=== PATIENT | female | born 1990 | race Caucasian/White ===

== ENCOUNTER 2020-10-01 15:43 | Outpatient (CLI) | payer BC, SELFPAY ==
--- NOTE | ~2020-10-01 | US_ITS ---
EXAMINATION: US pelvic complete w TV DATE: 10/01/2020 16:36 INDICATION: Pelvic pain TECHNIQUE: Multiple transabdominal and endovaginal sonographic images of the pelvis were obtained. COMPARISON: CT abdomen and pelvis dated 03/19/2018 FINDINGS: The uterus measures 7.6 x 3.4 x 4.0 cm. The endometrial complex measures 3 mm in thickness. Minimal fluid measuring up to 2 mm in thickness within the endocervical canal. The left ovary is not visualiz ed. 4.8 x 3.8 x 3.1 cm mass at the right adnexa situated between the uterus and what appears to be sm aller 2.0 x 1.9 x 1.3 m right ovary which demonstrates a few subcentimeter anechoic follicles. The ce rvix was identified within both the ovary and the adjacent mass. It is unclear whether the mass arise s from either the ovary, uterus, bowel or represents an independent mass. There are some regions with in the mass demonstrating shadowing suggesting possible calcification such as in a uterine fibroid. N o evident correlate on the prior CT. There is normal vascular flow in the ovaries. Small amount of li shana physiologic free fluid in the cul-de-sac. IMPRESSION: 1. 4.8 cm right adnexal mass of indeterminate origin. If of uterine etiology could represent a pedunc ulated fibroid. If ovarian etiologies would be concerning for malignancy. Differential would also inc lude enlarged right peroneal lymph node more mass associated with the bowel. Recommend further evalua tion with pre and postcontrast MRI. Reviewed, dictated and finalized at location A. [employer] SPECIALIST IMPRESSION: 1. 4.8 cm right adnexal mass of indeterminate origin. If of uterine etiology co uld represent a pedunculated fibroid. If ovarian etiologies would be concerning for malignancy. Differential would also include enlarged right peroneal lymph node more mass associated with the bowel. Recommend further evaluation with pre and postcontrast MRI.
== END 2020-10-01 15:44 | disposition home or self-care (01) ==
PROVIDERS: PCP Family Medicine; Visit Provider Nurse Practitioner
DX: R10.2 Pelvic and perineal pain (principal)
CPT/HCPCS: 76830; 76856

== ENCOUNTER 2020-10-19 06:35 | Outpatient (CLI) | payer BC, SELFPAY ==
--- NOTE | ~2020-10-19 | MR_ITS ---
EXAMINATION: MR pelvis wo/w con DATE: 10/19/2020 08:23 INDICATION: Right ovarian cyst. Right pelvic pain. TECHNIQUE: Magnetic resonance imaging (MRI) of the pelvis was performed without and with 13 mL MultiH ance intravenous contrast. Sequences included coronal and axial T2-weighted FS FSE, axial T1-weighted FS FSE, axial LAVA, coronal FS FIESTA, coronal LAVA-flex, axial T2-weighted FSE, axial dual-echo T1- weighted FSPGR, axial FS FIESTA, axial DWI, and small [id number] sagittal, coronal, and axial T2-w eighted FSE. Postcontrast sequences included coronal LAVA-flex and a time course of axial LAVA. COMPARISON: Ultrasound 10/01/2020, CT abdomen and pelvis 03/19/2018 FINDINGS: There are no dilated loops of bowel. There are no pathologically enlarged lymph nodes. There is a sma ll volume of pelvic ascites, likely physiologic. There is a 5.0 cm pedunculated fibroid on the right. The endometrial complex is normal. The ovaries are normal. IMPRESSION: 1. 5.0 cm pedunculated uterine fibroid on the right correlating with the ultrasound abnormality. Reviewed, dictated and finalized at location A. BOX FOLDER IMPRESSION: 1. 5.0 cm pedunculated uterine fibroid on the right correlating with the ultras ound abnormality.
[2020-10-19 07:40] LABS: Estimated Glomerular Filt Rate > 60
== END 2020-10-19 06:36 | disposition home or self-care (01) ==
PROVIDERS: PCP Family Medicine; Visit Provider Obstetrics & Gynecology
DX: N83.201 Unspecified ovarian cyst, right side (principal); D25.9 Leiomyoma of uterus, unspecified
CPT/HCPCS: 72197; A9577

== ENCOUNTER 2020-11-19 15:23 | Outpatient (CLI) | payer BC, SELFPAY ==
--- NOTE | ~2020-11-19 | XR_ITS ---
XR abdomen/kub 1V 11/19/2020 16:01 Indication: Gross hematuria. Right upper quadrant pain Procedure: KUB Comparison: No prior studies for comparison. Findings: Bowel gas pattern is nonobstructive. No abnormal calcifications. No acute osseous abnormali ty. Impression: 1: No acute abdominal abnormality. Reviewed, dictated and finalized at location B. Impression: 1: No acute abdominal abnormality.
--- NOTE | ~2020-11-19 | CT_ITS ---
EXAMINATION: CT abdomen pelvis wo/w con DATE: 11/19/2020 16:31 INDICATION: Gross hematuria. TECHNIQUE: Computed tomography (CT) of the abdomen and pelvis was performed without and with intraven ous contrast using a total of 130 mL Omnipaque-350 intravenous contrast with a double-bolus technique for simultaneous opacification of the renal parenchyma and renal collecting system. Automated exposu re control and iterative reconstruction technique were employed. The dose-length product was 974.37 m Gy-cm. COMPARISON: CT abdomen and pelvis 03/19/2018 FINDINGS: The visualized portions of the lung bases demonstrate a 4 mm groundglass nodule in right middle lobe and a 4 mm nodule in right lower lobe, likely benign. No pleural effusion. No pleural effusion. The h eart size is normal. No pericardial effusion. The liver, gallbladder, spleen, pancreas, adrenal gland s, and kidneys are normal. There is no urolithiasis. The ureters are not well opacified distally, but are normal. The bladder is normal. There is a 4.5 cm pedunculated uterine fibroid. There are no path ologically enlarged lymph nodes. There is trace pelvic ascites. The bones are unremarkable. IMPRESSION: 1. Uterine fibroid. Reviewed, dictated and finalized at location A. IMPRESSION: 1. Uterine fibroid.
== END 2020-11-19 15:24 | disposition home or self-care (01) ==
PROVIDERS: PCP Family Medicine; Visit Provider Urology
DX: R31.0 Gross hematuria (principal); D25.9 Leiomyoma of uterus, unspecified
CPT/HCPCS: 74018; 74178; Q9967

== ENCOUNTER → 2020-12-21 02:11 | Outpatient (CLI) | payer BC, SELFPAY ==
[2020-12-21 19:24] LABS: SARS-CoV-2 RNA PCR Negative
== END ==
PROVIDERS: PCP Family Medicine; Visit Provider Obstetrics & Gynecology
DX: Z01.812 Encounter for preprocedural laboratory examination (principal); Z20.822 Contact with and (suspected) exposure to COVID-19
CPT/HCPCS: C9803; U0003; U0005

== ENCOUNTER 2020-12-24 01:02 | Day surgery (SDC) | payer BC, SELFPAY ==
[2020-12-20 10:09] VITALS: BMI 29.2
--- NOTE | 2020-12-22 09:40 | PM.IMHP ---
H&P: HPI History of Present Illness Date/Time: this is a 22-year-old 0 who is admitted for laparoscopic myomectomy secondary to a pedunculated fibroid. The patient saw the urologist was complains of discomfort cetera ultrasound showed a pedunculated fibroid. Her pain is severe and she has asked for definitive therapy. Risks and benefits were reviewed in full/01/07 09:40 Chief Complaint: painful uterine fibroids Review of Systems Review of Systems: All systems reviewed & are unremarkable except as noted in HPI and below [facility] Social History Social History Smoking status: Never smoker Alcohol intake: current Substance use: never Substance use type: does not use Gender identity (if verbalized by the patient): Female Spiritual care concerns: No Meds Home Medications and Allergies Home Medications Medication Instructions Recorded Confirmed Type mometasone [Asmanex HFA] 2 puff INHALATION BID PRN 07/23/19 12/20/20 History norethindrone-e.estradiol-iron 1 tablet PO HS 07/23/19 12/20/20 History cetirizine [Zyrtec] 10 mg PO DAILY 12/20/20 12/20/20 History Allergies Allergy/AdvReac Type Severity Reaction Status Date / Time No Known Allergies Allergy Verified 12/20/20 10:06 Exam Const: General: no acute distress Eyes: General: appearance normal, both eyes and all related structures Neck: Neck: supple and no JVD Thyroid: thyroid normal Resp: Effort & Inspection: normal respiratory effort Auscultation: clear to auscultation bilaterally Cardio: Rate: regular rate Rhythm: regular rhythm GI: Inspection: non-distended GI Palp: Yes Soft to palpation, No Tenderness to palpation present (GI) and No Guarding due to palpation present (GI) Auscultation: normal bowel sounds : External Female Exam: normal external appearance Speculum Exam - Vagina: normal appearance of the vagina Speculum Exam - Cervix: normal appearance of the cervix Bimanual exam- vagina & uterus: enlarged and Uterine tenderness Skin: General skin exam: no rashes or lesions noted Extrem: General: normal to inspection and no edema Psych: Mental Status: mental status grossly normal Affect: normal affect Assessment and Plan Additional Plan impression Koul pedunculated fibroid Plan: Laparoscopic myomectomy
[2020-12-24] VITALS (12 sets, daily range): BP systolic 105–132; BP diastolic 69–87; PULSE 58–81; RESP 11–22; TEMP 36.3–36.8; O2SAT 100
--- NOTE | 2020-12-24 06:08 | WPDHPUPDATE1 ---
History and Physical Update Update Date/Time: 12/24/20 06:08 History and Physical has been reviewed, including an updated exam of the patient. There are NO changes in the patient's condition. Risks, benefits, and alternatives have been discussed and questions answered. Patient agrees to proceed with procedure.
--- NOTE | 2020-12-24 07:51 | WPDANESEPPF ---
Anes - Initial Pre Proc Eval Procedure: Operation Date: 12/24/20 11:30 Proposed Procedures p Laparoscopy With Myomectomy - Freddie Pepper MD Date/Time: 12/24/20 07:51 Surgeon: Freddie Pepper MD Pre Op Diagnosis: pedunculated fibroid Patient Data Age: 30 Gender: F Height: 1.52 m Weight: 68 kg Allergies Allergy/AdvReac Type Severity Reaction Status Date / Time No Known Allergies Allergy Verified 12/20/20 10:06 Home Medications Medication Instructions Recorded Confirmed Type mometasone [Asmanex HFA] 2 puff INHALATION BID PRN 07/23/19 12/20/20 History norethindrone-e.estradiol-iron 1 tablet PO HS 07/23/19 12/20/20 History cetirizine [Zyrtec] 10 mg PO DAILY 12/20/20 12/20/20 History hydrocodone-acetaminophen 1 tablet PO Q4H PRN #30 tablet 12/24/20 Rx Patient hx anesthesia problems: none Family hx anesthesia problems: none PMFSH Past Medical History Medical History (Updated 12/24/20 @ 07:51 by Luis Raya DO) Fibroid IBS (irritable bowel syndrome) Social History Social History Smoking status: Never smoker Alcohol intake: current Alcohol use details: RARE Substance use: never Substance use type: does not use Living arrangements: with family Gender identity (if verbalized by the patient): Female Spiritual care concerns: No Anes - Eval Final PreProcedure Day of Procedure 12/24/20 07:51 Patient weight: overweight Heart: regular rate and rhythm Lungs: clear to auscultation and normal air movement Airway: Mallampati scale class II Neurological: alert and oriented Last oral intake: >/= 8 hours ASA classification: II Emergent: no Anesthetic plan: proceed Anesthesia type and monitoring: general ETT and standard monitoring Informed Consent: The patient's anesthetic plan and its attendant risks and benefits were discussed with the patient/family/POA. Questions were solicited and answers provided to the satisfaction of the patient/family/POA.
[2020-12-24] MEDS: LACTATED RINGERS 1,000 ML 30 ML IV CONT ×2 (10:12→13:34)
[2020-12-24] MEDS: ACETAMINOPHEN 500 MG TABLET 1000 MG PO (10:22)
[2020-12-24] MEDS: KETOROLAC 15 MG/ML VIAL (*BKC) IV PUSH (10:23)
--- NOTE | 2020-12-24 12:03 | P.OP_ITS ---
Procedure Note - Detailed Date of procedure: 12/24/20 Pre-op diagnosis: pedunculated fibroid Surgeon: Freddie Pepper MD Postop diagnosis: Pedunculated fibroid/endometriosis Procedure: Laparoscopic myomectomy/destruction of endometriosis Anesthesia: General tracheal EBL: 25cc Findings: A large pedunculated fibroid. Normal-appearing ovaries and tubes bilaterally. Multiple areas of powder burn endometriosis along the right left uterosacral ligament. Normal-appearing appendix. Normal-appearing gallbladder and liver edge Complications: None Description of procedure the patient was prepped and draped in the normal sterile fashion placed in the dorsal lithotomy position. Under excellent gene ral endotracheal anesthesia weighted speculum placed posterior fornix of vagina. Anterior lip of the cervix was grasped with a single-tooth tenaculum. The single-tooth was inserted to the cervix with the Scanlon's cannula and attached for uterine manipulation. The bladder was emptied of clear urine. The remaining instruments removed and the gloves were changed. Supraumbilical incision was made the Veress needle passed in the abdomen. The abdomen was filled with CO2 gas to 15 of mercury. The 5mm trocar advanced under direct visualization assuring no injury. The patient was placed in [facility] and a suprapubic incision made. 5mm trocar was advanced under direct visualization assuring injury. A large pedunculated fibroid was seen posteriorly as well as multiple areas of powder burn endometriosis remainder of the pelvis appeared clear and photo documentation undertaken. A left lower quadrant incision made and the 10mm trocar advanced under direct visualization. Using the LigaSure in the pedunculated portion the fibroid was clamped burned and cut. This was brought across until it was able to be removed. Was then placed in an Endo-Catch after destroying the endometriosis was 35 w per 2nd monopolar cautery. Irrigation undertaken to clear blood loss estimated 25cc all pedicles appeared dry. The left lower quadrant incision was mildly enlarged to allow for the large pedunculated fibroid to be removed. The fascia was closed with continuous running 0 Vicryl from end and. Irrigation undertaken the subcutaneous layers and the skin were closed with 4 Monocryl in all 3 sites after gas had been removed from the abdomen. The patient was awakened and went to recovery in satisfactory condition. All sponge, needle, instrument counts were correct. There were no immediate complications
[2020-12-24] MEDS: fentaNYL CITRATE INJ (*CRX) 100 MCG/2 ML VIAL 25 MCG IV PUSH ×4 (12:34→13:12)
[2020-12-24] MEDS: HYDROmorphone HCL INJ (*CRX) 1 MG/ML SYR 0.5 MG IV PUSH ×2 (13:35→13:50)
[2020-12-24] MEDS: ONDANSETRON INJ 4 MG/2 ML VIAL IV PUSH (14:29)
--- NOTE | 2020-12-24 15:10 | SUR.PHASEII ---
pt states she is no longer nauseous but is denying pain pill at this time
== END 2020-12-24 15:15 | disposition home or self-care (01) ==
PROVIDERS: PCP Family Medicine; Visit Provider Obstetrics & Gynecology
PROC: (CPT 49320; principal; 2020-12-24 11:30)
DX: D25.2 Subserosal leiomyoma of uterus (principal); N80.3 Endometriosis of pelvic peritoneum
CPT/HCPCS: 58545; 58662; 36415; 86850; 86900; 86901; 88305; A9270; J1100; J1170; J1885; J2250; J2405; J2704; J2710; J3010; J7030; J7120; Q9968

== ENCOUNTER 2022-05-24 20:27 | Observation (INO) | payer OTHER, SELFPAY ==
[2022-05-24 20:47] VITALS: BP 134/86; PULSE 102
[2022-05-24 21:08] VITALS: BMI 39.2
--- NOTE | 2022-05-24 21:09 | OBADM ---
This patient, Corrina Mendoza, admitted to the OB room OB Post 115 for observation. Patient/family oriented to hospital policies and general routines including ID bracelet, bed and alarms, visiting hours, pain management, procedures, bathroom and other care routines, personal items, smoking policy, room service/diet, and visiting hours. Patient/Family are encouraged to report perceived risks to care and to ask questions if they do not understand what they are told or what they should do.
[2022-05-24 21:10] LABS: Amorphous Sediment Urine Few; Bacteria Urine Trace /hpf; Squamous Epithelial Cell Urine Many /hpf (Few)
[2022-05-24 21:12] LABS: Appearance Urine Cloudy (Clear); Bilirubin Urine Negative (Negative); Blood Urine Trace-intact (Negative); Color Urine Light Yellow (Yellow); Glucose Urine UA Negative (Negative); Ketones Urine Negative (Negative); Leukocyte Esterase Ur 2+ LEU/UL (Negative); Nitrate Urine Negative (Negative); Protein Urine Negative (Negative); Urobilinogen Urine 0.2 mg/dL (<2.0)
[2022-05-24 21:13] LABS: Add Urine Microscopic? YES
[2022-05-24] MEDS: CEPHALEXIN 500 MG CAPSULE PO (23:18)
--- NOTE | 2022-05-25 04:38 | P.PNOB_ITS ---
OB - Triage/Final Diagnosis Visit Information Date of evaluation: 05/24/22 Reason for evaluation: threatened labor Comments/Additional reasons for admission: I have assessed the risk for this patient, Corrina Mendoza, and determined that she would benefit from observation care. Evaluation Laboratory results: Laboratory Tests 05/24/22 20:57 Urine Color Light yellow Urine Appearance Cloudy H Urine pH 7.0 Ur Specific [place] 1.010 Urine Protein Negative Urine Glucose (UA) Negative Urine Ketones Negative Ur Blood (Man) Trace-intact Urine Nitrate Negative Urine Bilirubin Negative Urine Urobilinogen 0.2 Leukocyte Esterase Rfl 2+ H Urine RBC 6-10 H Urine WBC 10-15 H Ur Squamous Epith Cells Many H Amorphous Sediment Few H Urine Bacteria Trace Vital signs: Vital Signs - 24 hr 05/24/22 20:47 Pulse Rate 102 H Blood Pressure 134/86
== END 2022-05-24 23:30 | disposition home or self-care (01) ==
PROVIDERS: Admitting Provider Obstetrics & Gynecology; PCP Family Medicine; Visit Provider Obstetrics & Gynecology
DX: O47.03 False labor before 37 completed weeks of gestation, third trimester (principal); O26.893 Other specified pregnancy related conditions, third trimester; R10.9 Unspecified abdominal pain; Z3A.34 34 weeks gestation of pregnancy
CPT/HCPCS: 81001; 87086; 87088; A9270; G0378; G0379

== ENCOUNTER 2022-06-26 07:40 | Outpatient (CLI) | payer OTHER, SELFPAY ==
[2022-06-26 08:22] LABS: Hemoglobin 12.5 g/dL (12.0-15.0); Mean Corpuscular HGB Conc 31.3 g/dl (32-36); Mean Corpuscular Hemoglobin 31.8 pg (26-34); Mean Corpuscular Volume 101.8 fl (80-100); Mean Platelet Volume 12.3 fl (7.4-10.4); Platelet Count Result 183 k/mm3 (150-375); Red Blood Count 3.93 M/mm3 (4.2-5.4); Red Cell Distribution Width 14.4 % (11.5-14.5); White Blood Count 9.6 K/mm3 (4.5-10.0)
[2022-06-26 12:14] LABS: Rapid Plasma Reagin Non-Reactive (NonReactive)
== END 2022-06-26 07:41 | disposition home or self-care (01) ==
LOC: ANHLAB 07:43
PROVIDERS: PCP Family Medicine; Visit Provider Obstetrics & Gynecology
DX: Z34.93 Encounter for supervision of normal pregnancy, unspecified, third trimester (principal); Z3A.00 Weeks of gestation of pregnancy not specified
CPT/HCPCS: 36415; 85027; 86592; 86850; 86900; 86901

== ENCOUNTER 2022-06-27 05:23 | Inpatient (IN) | payer OTHER, SELFPAY ==
--- NOTE | 2022-06-26 14:22 | PM.IMHP ---
H&P: HPI History of Present Illness Date/Time: 06/26/22 14:22 Chief Complaint: Breech presentation term Narrative: A 22 1 para 0 who had an initial twin which resulted in a single 10. She has ultrasound which have proven the baby to be breech. She declines attempt at delivery or external version and opts for primary section. Her last menstrual period was 2 12 09, EDC is 07/04/2022, and this puts her at 39 weeks gestation with 12 week ultrasound confirming dates risks and benefits reviewed in full [facility] Past Medical History Medical History Fibroid IBS (irritable bowel syndrome) Family History Family History Other Patient denies significant medical history Social History Social History Smoking status: Never smoker Alcohol intake: current Alcohol use details: RARE Substance use: never Substance use type: does not use Gender identity (if verbalized by the patient): Female Spiritual care concerns: No Meds Home Medications and Allergies Home Medications Medication Instructions Recorded Confirmed Type mometasone 100 mcg/actuation HFA 2 puff inhalation BID PRN Allergy 07/23/19 09/20/21 History aerosol inhaler (Asmanex HFA) Symptoms cetirizine 10 mg tablet (Zyrtec) 10 mg PO DAILY 12/20/20 09/20/21 History cephalexin 500 mg capsule 500 mg PO Q12H 5 days #10 caps 05/24/22 Rx prenat.vits,marlon,bqf-yith-kjvmy 1 tablet PO HS 06/03/22 06/03/22 History Allergies Allergy/AdvReac Type Severity Reaction Status Date / Time No Known Allergies Allergy Verified 09/20/21 11:29 Exam Const: General: cooperative, healthy appearing, comfortable and overweight Orientation/consciousness: oriented to person, oriented to place and oriented to time HENMT: Head: normal to inspection Resp: Effort & Inspection: normal respiratory effort Cardio: Rate: regular rate Rhythm: regular rhythm Heart sounds: S1 normal heart sound present and S2 normal heart sound present GI: Inspection: normal to inspection (Gravid soft uterus) Assessment and Plan Assessment and plan (1) Term : Code(s): Z34.90 - Encounter for supervision of normal , unspecified, unspecified trimester Status: Acute (2) Breech presentation: Code(s): O32.1XX0 - Maternal care for breech presentation, not applicable or unspecified Status: Acute Plan Primary low-transverse section
[2022-06-27] VITALS (62 sets, daily range): BP systolic 97–134; BP diastolic 52–107; PULSE 62–104; RESP 14–20; TEMP 36.2–37.3; O2SAT 95–100; BMI 40.4
--- NOTE | 2022-06-27 05:52 | LDADM ---
This patient, Corrina Mendoza, was admitted to Labor/Delivery/Recovery 120 on 06/27/22 at 05:23. Plans for labor, pain management and were discussed with patient. Patient/family oriented to hospital policies and general routines including ID bracelet, bed and alarms, visiting hours, pain management, procedures, bathroom and other care routines, personal items, smoking policy, room service/diet and guest tray routines, infant security routines, and visiting hours. Patient/Family are encouraged to report perceived risks to care and to ask questions if they do not understand what they are told or what they should do. See OBIX for further documentation.
[2022-06-27] MEDS: LACTATED RINGERS 250 ML 999 ML IVPB (06:20)
--- NOTE | 2022-06-27 06:40 | WPDHPUPDATE1 ---
History and Physical Update Update Date/Time: 06/27/22 06:40 History and Physical has been reviewed, including an updated exam of the patient. There are NO changes in the patient's condition. Risks, benefits, and alternatives have been discussed and questions answered. Patient agrees to proceed with procedure.
--- NOTE | 2022-06-27 07:12 | P.PNAN_ITS ---
Anes - Initial Pre Proc Eval Procedure: Operation Date: 06/27/22 07:30 Proposed Procedures p Section - Freddie Zuñiga MD Date/Time: 06/27/22 07:12 Surgeon: Freddie Zuñiga MD Pre Op Diagnosis: C/S Patient Data Age: 31 Gender: F Height: 1.52 m Weight: 94 kg Last Vital Signs Temp 36.4 C 06/27/22 05:42 Pulse 97 06/27/22 05:42 Resp 16 06/27/22 05:42 BP 134/86 06/27/22 05:42 Allergies Allergy/AdvReac Type Severity Reaction Status Date / Time No Known Allergies Allergy Verified 09/20/21 11:29 Home Medications Medication Instructions Recorded Confirmed Type mometasone 100 mcg/actuation HFA 2 puff inhalation BID PRN Allergy 07/23/19 09/20/21 History aerosol inhaler (Asmanex HFA) Symptoms cetirizine 10 mg tablet (Zyrtec) 10 mg PO DAILY 12/20/20 09/20/21 History cephalexin 500 mg capsule 500 mg PO Q12H 5 days #10 caps 05/24/22 Rx prenat.vits,marlon,[id number]-[id number] 1 tablet PO HS 06/03/22 06/03/22 History hydrocodone 5 mg-acetaminophen 325 1 tablet PO Q4H PRN pain #30 tabs 06/27/22 Rx mg tablet Patient hx anesthesia problems: none Family hx anesthesia problems: none Results Review: All pre-operative results and documents have been reviewed as part of the pre- operative evaluation. [facility] Past Medical History Medical History Fibroid IBS (irritable bowel syndrome) Family History Family History Other Patient denies significant medical history Social History Social History Smoking status: Never smoker Alcohol intake: current Alcohol use details: RARE Substance use: never Substance use type: does not use Gender identity (if verbalized by the patient): Female Spiritual care concerns: No Anes - Eval Final PreProcedure Day of Procedure 06/27/22 07:12 Patient weight: morbidly obese Heart: regular rate and rhythm Lungs: clear to auscultation Airway: Mallampati scale class II Neurological: alert and oriented Last oral intake: >/= 8 hours ASA classification: III Emergent: no Anesthetic plan: proceed Anesthesia type and monitoring: regional spinal and standard monitoring Results Review: All pre-operative results and documents have been reviewed as part of the pre- operative evaluation. Informed Consent: The patient's anesthetic plan and its attendant risks and benefits were discussed with the patient/family/POA. Questions were solicited and answers provided to the satisfaction of the patient/family/POA.
--- NOTE | 2022-06-27 07:19 | WPDANESEPPF ---
Anes - Initial Pre Proc Eval Procedure: Operation Date: 06/27/22 07:30 Proposed Procedures p Section - Freddie Zuñiga MD Date/Time: 06/27/22 07:19 Surgeon: Freddie Zuñiga MD Pre Op Diagnosis: C/S Patient Data Age: 31 Gender: F Height: 1.52 m Weight: 94 kg Last Vital Signs Temp 36.4 C 06/27/22 05:42 Pulse 97 06/27/22 05:42 Resp 16 06/27/22 05:42 BP 134/86 06/27/22 05:42 Allergies Allergy/AdvReac Type Severity Reaction Status Date / Time No Known Allergies Allergy Verified 09/20/21 11:29 Home Medications Medication Instructions Recorded Confirmed Type mometasone 100 mcg/actuation HFA 2 puff inhalation BID PRN Allergy 07/23/19 09/20/21 History aerosol inhaler (Asmanex HFA) Symptoms cetirizine 10 mg tablet (Zyrtec) 10 mg PO DAILY 12/20/20 09/20/21 History cephalexin 500 mg capsule 500 mg PO Q12H 5 days #10 caps 05/24/22 Rx prenat.vits,marlon,arr-[id number] 1 tablet PO HS 06/03/22 06/03/22 History hydrocodone 5 mg-acetaminophen 325 1 tablet PO Q4H PRN pain #30 tabs 06/27/22 Rx mg tablet Patient hx anesthesia problems: none Family hx anesthesia problems: none Results Review: All pre-operative results and documents have been reviewed as part of the pre-operative evaluation. [facility] Past Medical History Medical History Fibroid IBS (irritable bowel syndrome) Family History Family History Other Patient denies significant medical history Social History Social History Smoking status: Never smoker Alcohol intake: current Alcohol use details: RARE Substance use: never Substance use type: does not use Gender identity (if verbalized by the patient): Female Spiritual care concerns: No Anes - Eval Final PreProcedure Day of Procedure 06/27/22 07:19 Patient weight: morbidly obese Heart: regular rate and rhythm Lungs: clear to auscultation Airway: Mallampati scale class II Neurological: alert and oriented Last oral intake: >/= 8 hours ASA classification: III Emergent: no Anesthetic plan: proceed Anesthesia type and monitoring: regional spinal and standard monitoring Results Review: All pre-operative results and documents have been reviewed as part of the pre-operative evaluation. Informed Consent: The patient's anesthetic plan and its attendant risks and benefits were discussed with the patient/family/POA. Questions were solicited and answers provided to the satisfaction of the patient/family/POA.
[2022-06-27] MEDS: LACTATED RINGERS 1,000 ML 125 ML IV CONT (07:23)
[2022-06-27] MEDS: ceFAZolin 2 GM/D5W 50 ML 2 GM/50 ML BAG IVPB (07:26)
--- NOTE | 2022-06-27 08:19 | W.PM.PROC2 ---
Procedure Note - Detailed Date of Procedure 06/27/22 Pre-op Diagnosis C/SBreech presentation Post-op Diagnosis Same Procedure Performed primary low-transverse section Surgeon Freddie Zuñiga MD Anesthesia Spinal Indications was 31-year-old 1 para 0 remained breech and breech fused attempt external Findings reach female 6lb 15oz Apgars of 8 and at 1 [id number] respectively Description of Procedure patient was prepped draped in the normal sterile fashion placed in the supine position. Under excellent spinal anesthetic the abdomen was entered Pfannenstiel incision progressive layers of fascia. Fascia was incised in upward outward fashion bilaterally. Underlying muscles sharply dissected parietal peritoneum elevated Lucy clamp. This was entered by sharp dissection superiorly and inferiorly the dome of the bladder. Bladder blade placed bladder flap formed bladder blade returned. A low transverse incision made the head delivered in the SAMSON position. Anterior posterior shoulder delivered spontaneously. Cord clamped 2x2 cut passed off the table given Apgars of 8 [id number]. Cord blood was drawn the placenta delivered intact manually. Uterus wrapped in a moist towel. After assuring no membranes or debris remained in the uterus, the uterus was closed with continuous running 0 Vicryl from lateral edge to lateral edge. This was followed by 2nd imbricating running locking Vicryl from lateral edge to lateral edge. Hemostasis was assured. The uterus returned to the abdomen after inspecting the ovaries and tubes and noting they were normal in nature. The laps removed and accounted for. The hysterotomy incision inspected 1 last time and noted hemostatic. The fascia closed with continuous running 0 Vicryl from lateral edge to midline bilaterally. Irrigation in the subcutaneous layer followed by closure of the skin with 4 Monocryl and glue. QBL was 800cc. All sponge, needle, instrument counts were correct. There were no immediate complications noted Estimated Blood Loss 800 Drains No Packing No Pathology None sent Complications No immediate complications Condition Stable Disposition Floor
[2022-06-27] MEDS: DEXTROSE 5%/0.45% SOD CHL 1,000 ML 125 ML IV CONT (09:45)
[2022-06-27] MEDS: KETOROLAC 30 MG/ML VIAL (*BKC) IV PUSH (10:45)
--- NOTE | 2022-06-27 14:23 | PC.NURSE ---
[id number] Primary RN is present in the room changing stool diaper. Introductions were made, then consulted with patient to assess needs related to . RN reported was just at the breast but did not have an effective feeding. Mother led the conversation with her experience feeding her infant so far. primary Mother works well with her infant with much encouragement and education. Encouraged understanding of the benefits of skin to skin (unwrapping infant and placing vertically on her chest), responsive feeding and how to watch for early feeding signs, frequency of feeding on demand about every 8-12 times in 24 hours (every 2-3 hours), milk production, duration of feeding, signs of adequate intake/output and how to record on the feeding sheet. Reviewed positioning and ear, shoulder, hip alignment, supporting the breast, asymmetrical latch (off-center), and leading with the chin with a big open side gape. latched optimally to the left breast in football position. Education given to mother of how to visualize suck/swallow ratios and drinking at the breast. was able to maintain latch without discomfort to mother for 15-20 minutes. Nipple care reviewed with optimal latch and good positioning. Infant was placed skin to skin upright on mother's chest, then latched optimally to the right breast in football position. Mother requires maximum assistance learning to sandwich her breast, encouraging a latch with infant opening big and wide, bringing the infant to the breast to get a mouthful, reminding her not to drop her large breast because it the weight pulls the breast out of the 's mouth. Reviewed good handwashing when or touching the breast/nipples to prevent infection. Resources used to facilitate learning were used with the tool and mom and baby guide. Mother voiced understanding of responsive feedings, stimulating with skin to skin, hand expressed colostrum, massage touch, talking to infant to encourage if it has been 2 -3 hours since the start of the last , to call if infant does not latch or there is discomfort with . Feeding charted and reported to primary RN.
--- NOTE | 2022-06-27 16:06 | PC.NURSE ---
[id number] Report received from primary nurse that mother has effectively latched her to breastfeed.
[2022-06-27] MEDS: SIMETHICONE 80 MG TAB.CHEW PO (16:45)
[2022-06-27] MEDS: HYDROcodone/acetaminophen (*CRX) 5-325 MG TABLET 1 TAB PO (16:45)
[2022-06-27] MEDS: IBUPROFEN 600 MG TABLET PO (16:46)
[2022-06-27] MEDS: LORATADINE 10 MG TABLET PO (16:47)
[2022-06-27] MEDS: DOCUSATE SODIUM 100 MG CAPSULE PO (16:48)
[2022-06-28 00:05] VITALS: BP 115/61; PULSE 103; RESP 16; TEMP 36.6; O2SAT 98
[2022-06-28] MEDS: IBUPROFEN 600 MG TABLET PO ×3 (02:27→13:10)
[2022-06-28] MEDS: HYDROcodone/acetaminophen (*CRX) 5-325 MG TABLET 1 TAB PO ×5 (02:28→22:56)
[2022-06-28] MEDS: SIMETHICONE 80 MG TAB.CHEW PO ×4 (02:28→22:57)
[2022-06-28 04:40] VITALS: BP 108/72; PULSE 107; RESP 18; TEMP 36.8; O2SAT 96
[2022-06-28 05:14] LABS: Basophils Percent Auto 0.3 % (0.2-1.2); Eosinophils Percent Auto 0.3 % (0-4.4); Hematocrit 28.1 % (37.0-47.0); Hemoglobin 9.1 g/dL (12.0-15.0); Immature Granulocyte Absolute 0.09 K/mm3 (0.00-0.031); Immature Granulocyte Percent A 0.8 % (0-0.5); Lymphocytes Absolute Auto 1.73 K/mm3 (0.9-3.2); Mean Corpuscular HGB Conc 32.4 g/dl (32-36); Mean Corpuscular Hemoglobin 31.7 pg (26-34); Mean Corpuscular Volume 97.9 fl (80-100); Mean Platelet Volume 12.5 fl (7.4-10.4); Monocytes Absolute Auto 0.7 K/mm3 (0.1-0.6); Monocytes Percent Auto 6.4 % (2.6-8.5); Neutrophils Absolute Auto 8.9 K/mm3 (1.3-6.7); Neutrophils Percent Auto 77.2 % (45.5-73.1); Platelet Count Result 166 k/mm3 (150-375); Red Blood Count 2.87 M/mm3 (4.2-5.4); Red Cell Distribution Width 14.6 % (11.5-14.5); White Blood Count 11.5 K/mm3 (4.5-10.0)
[2022-06-28] MEDS: MULTIVIT/MIN/PREN/FOL AC/IRON TABLET 1 TAB PO (07:30)
[2022-06-28] MEDS: DOCUSATE SODIUM 100 MG CAPSULE PO ×2 (07:30→17:53)
[2022-06-28] MEDS: POLYSACCHARIDE IRON COMPLEX 150 MG CAPSULE PO ×2 (07:30→17:53)
--- NOTE | 2022-06-28 07:40 | PM.OBPNVD ---
OB - PN: Subj Subjective Date/time seen: 06/28/22 07:40 Patient comments: no complaints and pain well controlled baby status: doing well and nursing well OB - PN: Obj Data Labs CBC & Chem 7: 06/28/22 04:27 Labs: Laboratory Results - last 24 hr 06/28/22 04:27 WBC 11.5 H RBC 2.87 L Hgb 9.1 L D Hct 28.1 L MCV 97.9 MCH 31.7 MCHC 32.4 RDW 14.6 H Plt Count 166 MPV 12.5 H Immature Gran % (Auto) 0.8 H Neut % (Auto) 77.2 H Lymph % (Auto) 15.0 L [place] % (Auto) 6.4 Eos % (Auto) 0.3 Baso % (Auto) 0.3 Lymph # (Auto) 1.73 [place] # (Auto) 0.7 H Eos # (Auto) 0.0 Baso # (Auto) 0.0 Abs Immat Gran (auto) 0.09 H Absolute Neuts (auto) 8.9 H Absolute Nucleated RBC 0.0 Nucleated RBC % 0.0 OB - PN A/P Plan day: 1 Plan: routine care Time Spent With Patient Time: Total time spent is greater than 50% in coordination of care (as documented) at patient's floor/unit and/or counseling patient: Time with patient: less than 15 minutes Exam Const: General: cooperative, healthy appearing and comfortable Nutritional Appearance: average body habitus Orientation/consciousness: oriented to person, oriented to place and oriented to time HENMT: Head: normal to inspection Resp: Effort & Inspection: normal respiratory effort GI: Inspection: normal to inspection and incision (cdi)
--- NOTE | 2022-06-28 07:41 | PM.DS ---
DS: Admitting Diagnosis Discharge Date 06/29/2022 Admitting Diagnosis Term /breech presentation DS: Discharge Diagnosis Discharge Diagnosis (1) Breech presentation: Code(s): O32.1XX0 - Maternal care for breech presentation, not applicable or unspecified Status: Acute (2) Term : Code(s): Z34.90 - Encounter for supervision of normal , unspecified, unspecified trimester Status: Acute DS: Summary Hospital Course Reason for hospitalization: patient was admitted for primary section secondary to breech presentation at term Hospital Course: she underwent unremarkable primary low-transverse section delivering a female . Her hospital course was unremarkable. She remained afebrile. She was up, voiding without difficulty, ambulating, eating regular diet, breast-feeding, generally without complaints. Time Spent with Patient Time attestation: Total time spent providing and/or coordinating discharge services: Exam Const: General: cooperative, healthy appearing, comfortable and overweight Orientation/consciousness: oriented to person, oriented to place and oriented to time HENMT: Head: normal to inspection Resp: Effort & Inspection: normal respiratory effort GI: Inspection: normal to inspection and incision ( Clean dry and intact) DS: Data Data Completed and Pending Labs on day of discharge: Labs from last 24 hours 06/28/22 04:27 WBC 11.5 H RBC 2.87 L Hgb 9.1 L D Hct 28.1 L MCV 97.9 MCH 31.7 MCHC 32.4 RDW 14.6 H Plt Count 166 MPV 12.5 H Immature Gran % (Auto) 0.8 H Neut % (Auto) 77.2 H Lymph % (Auto) 15.0 L [place] % (Auto) 6.4 Eos % (Auto) 0.3 Baso % (Auto) 0.3 Lymph # (Auto) 1.73 [place] # (Auto) 0.7 H Eos # (Auto) 0.0 Baso # (Auto) 0.0 Abs Immat Gran (auto) 0.09 H Absolute Neuts (auto) 8.9 H Absolute Nucleated RBC 0.0 Nucleated RBC % 0.0 Discharge Plan Discharge Attending physician on discharge: Freddie Garcia Discharging Clinician: Freddie Garcia Patient Disposition: Home, Self-Care Activity: may shower, no straining, may drive after 2 weeks and pelvic rest Diet: heart healthy Wound Care Instructions: follow printed instructions Patient Instructions: Antibiotic Form Stand Alone Forms: General Discharge Information Follow-up/Referrals: Freddie Garcia MD [Physician] - Discharge Medications: New hydrocodone-acetaminophen 5-325 mg tablet 1 tablet PO Q4H PRN (Reason: pain) Qty: 30 0RF Continued Asmanex HFA 100 mcg/actuation HFA aerosol inhaler 2 puff INHALATION BID PRN (Reason: Allergy Symptoms) cetirizine [Zyrtec] 10 mg Tablet 10 mg PO DAILY cephalexin 500 mg capsule 500 mg PO Q12H 5 Days Qty: 10 0RF #2 Tablet 1 tablet PO HS Date of admission: 06/27/22 05:23 Primary Care Provider: Bonnie,Pippa Pugh Admitting Provider: Ferddie Garcia Attending physician on admission: Freddie Garcia Condition: Stable
[2022-06-28 08:00] VITALS: PULSE 97; RESP 18; O2SAT 97
[2022-06-28 08:21] VITALS: BP 107/59; PULSE 97; TEMP 36.6; O2SAT 97
--- NOTE | 2022-06-28 09:34 | PC.NURSE ---
On 06/28/22, the student, Juanpablo Parikh, provided care and completed [facility] documentation on this patient. I have reviewed the student's documentation and agree with the findings.
--- NOTE | 2022-06-28 11:40 | WPDANLDPN2 ---
Anes-Prog Note L&D Date/Time: 06/28/22 11:40 Comfortable throughout: section Neuraxial method: spinal Epidural/Spinal procedure site: clean & non-tender Neuro status: Neuro function grossly intact. Cardiovascular status: normal Respiratory status: normal Airway patency: baseline Mental status: baseline Post-Op hydration status: normal Vital Signs: Last Vital Signs Temp 36.6 C 06/28/22 08:21 Pulse 97 06/28/22 08:21 Resp 18 06/28/22 04:40 BP 107/59 L 06/28/22 08:21 Pulse Ox 97 06/28/22 08:21 O2 Del Method Room Air 06/27/22 19:00 Pain score (VAS): 3/10 I/O: Intake & Output 06/27/22 06/28/22 06/28/22 23:59 07:59 15:59 Intake Total 640 400 Output Total 700 1100 Balance -60 -700 Patient feedback: Patient satisfied with anesthetic care.
--- NOTE | 2022-06-28 11:40 | WPDANLDNPN2 ---
Anes-Prog Note L&D-Neuraxial Date/Time: 06/28/22 11:40 Neuraxial medications: intrathecal PF morphine Opiod-related complaints: pruritis moderate, treatment effective Patient feedback: Patient satisfied with post-operative pain management.
--- NOTE | 2022-06-28 11:57 | PC.NURSE ---
[id number] Consulted with patient to assess needs related to . Father of baby led conversation with the experience with feeding baby so far. Father of baby states would not latch well last night and the nurse suggested a bottle. was supplemented and became more eager to breastfeed. Mother states one breast is harder than another. We discussed the risks and benefits of pumping to stimulate milk production since doesn't latch well at times and received a bottle of formula. Mother states she had planned to pump and feed as well as breastfeed. [employer] pump was given to the parents and mother is eating breakfast. Parents voiced understanding to call for latch assistance, if doesnt' wake to breastfeed or if there is pain with latching. [phone] Parents requested a consult. Father of baby states they attempted to latch their infant and she took a few sucks and fell asleep. Mother desires to initiate pumping. Breast pump provided due to ineffective breastfeed. Instructions given on cleaning, care, usage, that there should be no pain, pumping schedule for milk production, collection, and storage of human milk. Parents are encouraged to record pumping schedule on the feeding sheet. Patient was assessed for correct placement, flange size, to pump for comfort and nipple stretching/stimulation for adequate milk production every 3 hours (8 times in 24 hours) 1-2 times at night. Discussed the risks and benefits of pumping and confirmed with mother that there should not be pain with pumping. Parents voiced understanding of the education shared along with mom and baby guide for additional resource information. RN offered assistance with latching infant and the parents were open to unwrapping infant to assess for feeding cues. Encouraged understanding of the benefits of skin to skin (unwrapping infant and placing vertically on her chest), responsive feeding and how to watch for early feeding signs, frequency of feeding on demand about every 8-12 times in 24 hours (every 2-3 hours), milk production, duration of feeding, signs of adequate intake/output and how to record on the feeding sheet. Reviewed positioning and ear, shoulder, hip alignment, supporting the breast, asymmetrical latch (off-center), and leading with the chin with a big open side gape. Infant latched to the right breast in football position using the teacup hold of the breast. Father of baby was taught the hold, what type of big open wide gape to wait for and how to assist mother with latching their . Parents were reminded to support the good latch not allowing to pause long enough to go to sleep, to not let the infant drop off the nipple or mother latch then drop her large breast as is not strong enough to hold the large breast with her mouth at this time. Education given to the parents of how to visualize suck/swallow ratios and listen for drinking at the breast. Infant was able to maintain latch without discomfort to mother, then after 10 minutes mother confirms that the latch feels pinchy . Demonstrated how to detach the infant from the breast. Nipple is slightly misshaped with a line down the middle of the nipple. Nipple care reviewed with optimal latch and good positioning. was offered the left breast using football positioning and teacup hold. Infant latched optimally, mother denied pain and states that it feels like sucking and not pinchy. Reviewed good handwashing when or touching the breast/nipples to prevent infection. Resources used to facilitate learning were used with the tool for demonstration and the mom/baby guide. Mother voiced understanding of responsive feedings, stimulating with skin to skin, hand expressed colostrum, massage touch, talking to to encourage if it has been 2 -3 hours since the start of the last , to call if does not latch or there is discomfort with breastfee
--- NOTE | 2022-06-28 14:33 | PC.NURSE ---
[id number] Mother works with her infant with encouragement and reinforcement of education. Mother has infant skin to skin unwrapped and vertically on her chest but sleeping. Mother reminded of massage touch, changing positioning and stimulating to wake up to breastfeed. Reviewed positioning and ear, shoulder, hip alignment, supporting the breast, asymmetrical latch (off-center), and leading with the chin with a big open side gape. Infant latched optimally to the right breast in football position. Education given to mother of how to visualize rocking motion and mother states she can feel sucking and denies pain. Infant was able to maintain latch. Nipple care reviewed with optimal latch and good positioning. Mother voiced understanding of responsive feedings, stimulating with skin to skin, massage touch, talking to infant to encourage if it has been 2 -3 hours since the start of the last , to call if infant does not latch or there is discomfort with .
[2022-06-28] MEDS: LORATADINE 10 MG TABLET PO (18:00)
[2022-06-28 19:25] VITALS: BP 126/80; PULSE 95; RESP 16; TEMP 36.7; O2SAT 98
[2022-06-29] MEDS: HYDROcodone/acetaminophen (*CRX) 5-325 MG TABLET 1 TAB PO (03:45)
[2022-06-29] MEDS: IBUPROFEN 600 MG TABLET PO (03:46)
[2022-06-29 08:05] VITALS: BP 121/73; PULSE 79; RESP 16; TEMP 37.4; O2SAT 98
[2022-06-29] MEDS: DOCUSATE SODIUM 100 MG CAPSULE PO (09:36)
[2022-06-29] MEDS: MULTIVIT/MIN/PREN/FOL AC/IRON TABLET 1 TAB PO (09:36)
[2022-06-29] MEDS: POLYSACCHARIDE IRON COMPLEX 150 MG CAPSULE PO (09:36)
[2022-06-29] MEDS: LANOLIN (LANSINOH) 7.5 GM CREAM 1 APPLIC TOPICAL (09:37)
--- NOTE | 2022-06-29 11:34 | PC.NURSE ---
Patient viewed the discharge video Mother & Baby Care, The First Two Weeks . Patient was given the opportunity and encouraged to ask questions. Patient verbalized understanding of information shared and has been given the mother/baby guide for home reference.
--- NOTE | 2022-06-29 14:34 | PC.NURSE ---
1113 - Parents are watching the discharge video. 1133 - Parents are watching the discharge video. Encouraged to call out for questions or concerns before going home.
[2022-06-30 09:50] VITALS: BP 122/79; PULSE 90; RESP 20; TEMP 36.6; O2SAT 100
== END 2022-06-29 13:42 | disposition home or self-care (01) | DRG 788 ==
LOC: ANHLDR 06:41 → ANHOB2 10:59
PROVIDERS: Admitting Provider Obstetrics & Gynecology; PCP Family Medicine; Visit Provider Obstetrics & Gynecology
PROC: 10D00Z1 Extraction of Products of Conception, Low, Open Approach (ICD-10-PCS; CPT 59514; principal; 2022-06-27 07:30)
DX: O32.1XX0 Maternal care for breech presentation, not applicable or unspecified (principal); Z37.0 Single live birth; Z3A.39 39 weeks gestation of pregnancy
CPT/HCPCS: 36415; 85025; 85027; 86592; 86850; 86900; 86901; A9270; J0131; J0690; J1885; J2274; J3010; J7120

== ENCOUNTER 2022-09-19 09:47 | Emergency (ER) | payer OTHER, SELFPAY ==
--- NOTE | 2022-09-19 10:04 | ED.URI ---
HPI - URI/Sore Throat General Chief Complaint: Upper Respiratory Infection Stated Complaint: sorethroat Time Seen by Provider: 09/19/22 10:04 Source: patient, RN notes reviewed and old records reviewed Mode of arrival: ambulatory Limitations: no limitations History of Present Illness HPI Narrative: 32 year old female who [facility] with complaints of sore throat which started 4 days ago along with some nasal congestion and drainage. Patient reports that she was treated 2 weeks ago for strep throat. patient denies any fever,chills, or sweats,no body aches or ear pain. Patient denies any shortness of breath, ear pain,chest pain, no nausea or vomiting. 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 MD elicited complaint: cough and sore throat Pertinent past history: other (strep throat) Onset (ago): day(s) (4) Pain scale (0-10): 8 Able to tolerate fluids by mouth: Yes Associated symptoms: rhinorrhea and sore throat Related Data Home Medications Medication Instructions Recorded Confirmed mometasone 100 mcg/actuation HFA 2 puff inhalation BID PRN Allergy 07/23/19 09/19/22 aerosol inhaler (Asmanex HFA) Symptoms prenat.vits,marlon,iap-[id number] 1 tablet PO HS 06/03/22 09/19/22 norethindrone (contraceptive) 0.35 0.35 mg PO DAILY 09/19/22 09/19/22 mg tablet sertraline 50 mg tablet 50 mg PO DAILY 09/19/22 09/19/22 Allergies Allergy/AdvReac Type Severity Reaction Status Date / Time No Known Allergies Allergy Verified 09/19/22 10:08 Review of Systems Review of Systems: CONSTITUTIONAL: Denies malaise, chills, sweats, or fever. EYES: Denies visual changes, redness, or discharge. ENT: Reports rhinorrhea, congestion, sinus pain,no otalgia, positive for sore throat. CARDIOVASCULAR: Denies chest pain, palpitations, or edema. RESPIRATORY: Reports cough.? Denies dyspnea. GASTROINTESTINAL: Denies abdominal pain, nausea, vomiting, diarrhea SKIN: Denies rash or itching. MUSCULOSKELETAL: Denies myalgia. NEUROLOGIC: Denies headache. All systems reviewed & are unremarkable except as noted in HPI and below PMFSH Past Medical History Medical History (Updated 09/19/22 @ 10:30 by Lisbeth Cohen NP) Bronchitis Fibroid IBS (irritable bowel syndrome) Seasonal allergies Strep pharyngitis Surgical History Surgical History History of sinus surgery Family History Family History (Updated 09/19/22 @ 10:29 by Lisbeth Cohen NP) Father Heart disease Sibling Asthma Grandparent Cerebrovascular accident Epilepsy Social History Social History Smoking status: Never smoker Alcohol intake: current Alcohol use details: RARE Substance use: never Substance use type: does not use Living arrangements: with family Gender identity (if verbalized by the patient): Female Spiritual care concerns: No Comments At time of signature, agree with nursing past medical, surgical, social and family history. There is no relevant family history pertinent to the presenting complaint Exam Narrative: GENERAL: Well-appearing, well-nourished, and in no acute distress. HEAD: Normocephalic EYES: PERRLA, conjunctivae clear ENT: Nares clear, turbinates edematous and erythematous, clear discharge. Mucous membranes moist. TM pearly emanuel with dull light reflex bilaterally; no tragal tenderness. Oropharynx erythematous without lesions. Tonsils red enlarged and without exudate, no drooling, no hoarseness, no trismus, uvula midline.post nasal drainage present, post nasal drainage. NECK: Supple. lymphadenopathy CHEST: Clear to auscultation, breath sounds equal. No wheezing, rhonchi, rales, or stridor. No respiratory distress, speaks in full sentences.[id number]% on room air HEART: Regular rate and rhythm. No murmur heard. SKIN: Warm, dry, no rash. NEURO: Alert and oriented x3.
[2022-09-19 10:06] VITALS: BP 113/63; PULSE 114; RESP 18; TEMP 36.4; O2SAT 100
== END 2022-09-19 10:24 | disposition home or self-care (01) ==
PROVIDERS: Emergency Provider Registered Nurse; PCP Family Medicine
DX: J02.0 Streptococcal pharyngitis (principal)
CPT/HCPCS: 87880; 99213; G0463

== ENCOUNTER 2023-05-05 10:31 | Outpatient (CLI) | payer OTHER, SELFPAY ==
[2023-05-05 11:04] LABS: Hematocrit 40.3 % (37.0-47.0); Hemoglobin 13.3 g/dL (12.0-15.0)
== END 2023-05-05 10:32 | disposition home or self-care (01) ==
PROVIDERS: PCP Family Medicine; Visit Provider Obstetrics & Gynecology
DX: Z01.818 Encounter for other preprocedural examination (principal)
CPT/HCPCS: 36415; 85014; 85018

== ENCOUNTER 2023-05-10 09:06 | Outpatient (NON) | payer OTHER, SELFPAY | END 2023-05-10 09:07 | disposition home or self-care (01) | LOC: ANHLAB 05-11 09:08 | PROVIDERS: PCP Family Medicine; Visit Provider Obstetrics & Gynecology | DX: N92.6 Irregular menstruation, unspecified (principal) | CPT/HCPCS: 88305 ==

== ENCOUNTER 2023-05-10 10:05 | Day surgery (SDC) | payer OTHER, SELFPAY ==
[2023-05-02 13:18] VITALS: BMI 32.4
--- NOTE | 2023-05-08 07:03 | PM.IMHP ---
H&P: HPI History of Present Illness Date/Time: 05/08/23 07:03 Chief Complaint: vaginal bleeding Narrative: 32-year-old female with thickened endometrium and irregular bleeding refractory to medical therapy she will undergo hysteroscopy dilatation curettage. Risks and benefits reviewed including not exclusive of , aspiration pneumonia, bleeding, transfusion perforation injury to bowel, bladder, ureters, or other internal organs with need for open laparotomy. She received the ACOG handouts entitled hysteroscopy and dilatation and curettage respectively. She had all questions answered. She asked to proceed PMFSH Past Medical History Medical History Bronchitis Fibroid IBS (irritable bowel syndrome) Seasonal allergies Strep pharyngitis Surgical History Surgical History History of sinus surgery Family History Family History Father Heart disease Sibling Asthma Grandparent Cerebrovascular accident Epilepsy Social History Social History Smoking status: Never smoker Alcohol intake: current Alcohol use details: 4 per month Substance use: never Substance use type: does not use Lack of Transportation: No Lack of Food: Never True Current Housing: I Have Housing Concerned About Future Housing: No Difficulty Paying Gas/Electric Bills: No Difficulty Paying for Meds: No Currently Unemployed: No Education: Trade/Vocational Certificate Difficulty w/ Childcare or Family Care: No Living arrangements: with family Gender identity (if verbalized by the patient): Female Spiritual care concerns: No Meds Home Medications and Allergies Home Medications Medication Instructions Recorded Confirmed Type mometasone 100 mcg/actuation HFA 2 puff inhalation BID PRN Allergy 07/23/19 05/02/23 History aerosol inhaler (Asmanex HFA) Symptoms fluticasone propionate 50 1 - 2 spray intranasal BID #16 mL 10/13/22 05/02/23 Rx mcg/actuation nasal spray,suspension (Flonase Allergy Relief) bupropion HCl 150 mg 24 hr tablet, 150 mg PO DAILY 05/02/23 05/02/23 History extended release multivitamin 1 tablet PO DAILY 05/02/23 05/02/23 History Allergies Allergy/AdvReac Type Severity Reaction Status Date / Time No Known Allergies Allergy Verified 05/02/23 14:33 Exam Const: General: cooperative, healthy appearing and comfortable Nutritional Appearance: average body habitus Orientation/consciousness: oriented to person, oriented to place and oriented to time HENMT: Head: normal to inspection Resp: Effort & Inspection: normal respiratory effort Cardio: Rate: regular rate Rhythm: regular rhythm Heart sounds: S1 normal heart sound present and S2 normal heart sound present GI: Inspection: normal to inspection Auscultation: normal bowel sounds : External Female Exam: normal external appearance Speculum Exam - Vagina: normal appearance of the vagina Speculum Exam - Cervix: normal appearance of the cervix Bimanual exam- vagina & uterus: enlarged Bimanual Exam- Adnexa, other: normal adnexae Assessment and Plan Assessment and plan (1) Vaginal bleeding: Code(s): N93.9 - Abnormal uterine and vaginal bleeding, unspecified Status: Acute Plan hysteroscopy/dilatation curettage
--- NOTE | 2023-05-10 06:55 | WPDHPUPDATE1 ---
History and Physical Update Update Date/Time: 05/10/23 06:55 History and Physical has been reviewed, including an updated exam of the patient. There are NO changes in the patient's condition. Risks, benefits, and alternatives have been discussed and questions answered. Patient agrees to proceed with procedure.
[2023-05-10 10:25] VITALS: BP 123/82; PULSE 82; RESP 20; TEMP 36.6; O2SAT 100
[2023-05-10] MEDS: LACTATED RINGERS 1,000 ML 150 ML IV CONT (10:37)
[2023-05-10] MEDS: ACETAMINOPHEN 500 MG TABLET 1000 MG PO (10:38)
--- NOTE | 2023-05-10 11:11 | WPDANESEPPF ---
Anes - Initial Pre Proc Eval Procedure: Operation Date: 05/10/23 12:00 Proposed Procedures p Hysteroscopy with Dilation and Curettage - Freddie Zuñiga MD Date/Time: 05/10/23 11:11 Surgeon: Freddie Zuñiga MD Pre Op Diagnosis: Irregular Bleeding Patient Data Age: 32 Gender: F Height: 1.52 m Weight: 76.5 kg Last Vital Signs Temp 36.6 C 05/10/23 10:25 Pulse 82 05/10/23 10:25 Resp 20 05/10/23 10:25 BP 123/82 05/10/23 10:25 Pulse Ox 100 05/10/23 10:25 O2 Del Method Room Air 05/10/23 10:25 Allergies Allergy/AdvReac Type Severity Reaction Status Date / Time No Known Allergies Allergy Verified 05/10/23 10:23 Home Medications Medication Instructions Recorded Confirmed Type mometasone 100 mcg/actuation HFA 2 puff inhalation BID PRN Allergy 07/23/19 05/10/23 History aerosol inhaler (Asmanex HFA) Symptoms fluticasone propionate 50 1 - 2 spray intranasal BID #16 mL 10/13/22 05/10/23 Rx mcg/actuation nasal spray,suspension (Flonase Allergy Relief) bupropion HCl 150 mg 24 hr tablet, 150 mg PO DAILY 05/02/23 05/10/23 History extended release multivitamin 1 tablet PO DAILY 05/02/23 05/10/23 History hydrocodone 5 mg-acetaminophen 325 1 tablet PO Q4H PRN pain #14 tabs 05/10/23 Rx mg tablet Patient hx anesthesia problems: none Family hx anesthesia problems: none Results Review: All pre-operative results and documents have been reviewed as part of the pre-operative evaluation. [facility] Past Medical History Medical History Bronchitis Fibroid IBS (irritable bowel syndrome) Seasonal allergies Strep pharyngitis Surgical History Surgical History History of sinus surgery Family History Family History Father Heart disease Sibling Asthma Grandparent Cerebrovascular accident Epilepsy Social History Social History Smoking status: Never smoker Alcohol intake: current Alcohol use details: 4 per month Substance use: never Substance use type: does not use Lack of Transportation: No Lack of Food: Never True Current Housing: I Have Housing Concerned About Future Housing: No Difficulty Paying Gas/Electric Bills: No Difficulty Paying for Meds: No Currently Unemployed: No Education: Trade/Vocational Certificate Difficulty w/ Childcare or Family Care: No Living arrangements: with family Gender identity (if verbalized by the patient): Female Spiritual care concerns: No Anes - Eval Final PreProcedure Day of Procedure 05/10/23 11:11 Patient weight: normal Heart: regular rate and rhythm Lungs: clear to auscultation Airway: Mallampati scale class II Neurological: alert and oriented Last oral intake: >/= 8 hours ASA classification: III Emergent: no Anesthetic plan: proceed Anesthesia type and monitoring: general GIVS and standard monitoring Results Review: All pre-operative results and documents have been reviewed as part of the pre-operative evaluation. Informed Consent: The patient's anesthetic plan and its attendant risks and benefits were discussed with the patient/family/POA. Questions were solicited and answers provided to the satisfaction of the patient/family/POA.
[2023-05-10] MEDS: LIDOCAINE HCL 1% LOCAL INJ 20 ML VIAL 10 ML INFILTRATE (12:00)
--- NOTE | 2023-05-10 12:06 | W.PM.PROC2 ---
Procedure Note - Detailed Date of Procedure 05/10/23 Pre-op Diagnosis Irregular Bleeding Post-op Diagnosis Same Procedure Performed hysteroscopy/dilatation curettage Surgeon Freddie Zuñiga MD Anesthesia MAC and Local Indications 32-year-old female with thickened endometrium on ultrasound and heavy bleeding Findings thick irregular endometrial tissue Description of Procedure patient was prepped draped in normal sterile fashion placed in dorsal lithotomy was. Under excellent IV sedation weighted speculum placed in posterior fornix vagina. Anterior lip of the cervix grasped with single-tooth tenaculum. 2.5cc 1% xylocaine anesthesia placed at 2, 4, 8, 10:00 a.m. of the cervix. Uterus sounded to 8cm. Serial dilatation with fragmented dilators performed followed by passage of the 5mm visualizing hysteroscope using normal saline as visualizing medium. Thick irregular endometrial tissue was seen in photo documentation undertaken. Uterus was then scraped over the entire 360? removing a moderate to heavy amount of tissue. When a good grating sound was heard the instruments withdrawn. The patient was awakened went to recovery in satisfactory condition. All sponge, needle, instrument counts were correct. Were no immediate complications Estimated Blood Loss 25 Drains No Packing No Pathology Yes Complications No immediate complications Condition Stable Disposition PACU
[2023-05-10 12:09] VITALS: BP 104/67; PULSE 70; RESP 14; O2SAT 100
[2023-05-10 12:19] VITALS: BP 97/65; PULSE 64; RESP 18; O2SAT 100
[2023-05-10 12:29] VITALS: BP 97/65; PULSE 70; RESP 18; O2SAT 100
[2023-05-10 12:39] VITALS: BP 111/87; PULSE 77; RESP 20; O2SAT 100
[2023-05-10 12:49] VITALS: BP 128/64; PULSE 72; RESP 16; O2SAT 98
--- NOTE | 2023-05-10 13:19 | WPDANESPN ---
Anes - Prog Note Post-Op Date/Time: 05/10/23 13:19 Cardiovascular status: normal Respiratory status: normal Airway patency: baseline Mental status: baseline Post-Op hydration status: normal Vital Signs: Last Vital Signs Temp 36.6 C 05/10/23 10:25 Pulse 72 05/10/23 12:49 Resp 16 05/10/23 12:49 BP 128/64 05/10/23 12:49 Pulse Ox 98 05/10/23 12:49 O2 Del Method Room Air 05/10/23 12:49 Pain Score (VAS): 0 I/O: Intake & Output 05/09/23 05/10/23 05/10/23 23:59 07:59 15:59 Intake Total 700 Balance 700 Patient Feedback: Patient satisfied with anesthetic care.
== END 2023-05-10 13:14 | disposition home or self-care (01) ==
PROVIDERS: PCP Family Medicine; Visit Provider Obstetrics & Gynecology
PROC: 0U5B8ZZ Destruction of Endometrium, Via Natural or Artificial Opening Endoscopic (ICD-10-PCS; CPT 58563; principal; 2023-05-10 12:00)
DX: N93.8 Other specified abnormal uterine and vaginal bleeding (principal)
CPT/HCPCS: 58558

== ENCOUNTER 2023-10-30 15:56 | Outpatient (CLI) | payer OTHER, SELFPAY ==
[2023-10-30 16:21] LABS: Basophils Percent Auto 0.6 % (0.2-1.2); Eosinophils Absolute Auto 0.1 K/mm3 (0-0.3); Eosinophils Percent Auto 0.7 % (0-4.4); Hematocrit 40.8 % (37.0-47.0); Hemoglobin 13.5 g/dL (12.0-15.0); Immature Granulocyte Absolute 0.01 K/mm3 (0.00-0.031); Immature Granulocyte Percent A 0.1 % (0-0.5); Lymphocytes Absolute Auto 2.36 K/mm3 (0.9-3.2); Lymphocytes Percent Auto 34.1 % (18.3-44.2); Mean Corpuscular HGB Conc 33.1 g/dl (32-36); Mean Corpuscular Hemoglobin 29.8 pg (26-34); Mean Corpuscular Volume 90.1 fl (80-100); Mean Platelet Volume 11.7 fl (7.4-10.4); Monocytes Absolute Auto 0.5 K/mm3 (0.1-0.6); Monocytes Percent Auto 6.9 % (2.6-8.5); Neutrophils Percent Auto 57.6 % (45.5-73.1); Platelet Count Result 249 k/mm3 (150-375); Red Blood Count 4.53 M/mm3 (4.2-5.4); Red Cell Distribution Width 12.6 % (11.5-14.5); White Blood Count 6.9 K/mm3 (4.5-10.0)
[2023-10-30 16:34] LABS: Anion Gap 6 mmol/L (8-16); Blood Urea Nitrogen 14 mg/dL (7-17); Calcium 9.1 mg/dL (8.4-10.2); Carbon Dioxide 26 mmol/L (22-30); Chloride 104 mmol/L (98-107); Estimated Glomerular Filt Rate > 60; Glucose 107 mg/dL (65-110); Potassium 3.7 mmol/L (3.4-5.0); Sodium 136 mmol/L (137-145)
[2023-10-30 17:02] LABS: Free T4 Free Thyroxine 1.01 ng/mL (0.78-2.19)
== END 2023-10-30 15:57 | disposition home or self-care (01) ==
LOC: ANHLAB 15:59
PROVIDERS: PCP Family Medicine; Visit Provider Family Medicine
DX: R42 Dizziness and giddiness (principal)
CPT/HCPCS: 36415; 80048; 84439; 84443; 85025

== ENCOUNTER 2024-10-21 12:12 | Outpatient (CLI) | payer OTHER, SELFPAY ==
[2024-10-21 12:57] LABS: Basophils Percent Auto 0.4 % (0.2-1.2); Eosinophils Percent Auto 0.6 % (0-4.4); Hematocrit 38.1 % (37.0-47.0); Immature Granulocyte Absolute 0.02 K/mm3 (0.00-0.031); Immature Granulocyte Percent A 0.4 % (0-0.5); Lymphocytes Absolute Auto 1.75 K/mm3 (0.9-3.2); Lymphocytes Percent Auto 32.9 % (18.3-44.2); Mean Corpuscular HGB Conc 31.5 g/dl (32-36); Mean Corpuscular Hemoglobin 26.7 pg (26-34); Mean Corpuscular Volume 84.9 fl (80-100); Mean Platelet Volume 12.1 fl (7.4-10.4); Monocytes Absolute Auto 0.3 K/mm3 (0.1-0.6); Monocytes Percent Auto 6.2 % (2.6-8.5); Neutrophils Absolute Auto 3.2 K/mm3 (1.3-6.7); Neutrophils Percent Auto 59.5 % (45.5-73.1); Platelet Count Result 241 k/mm3 (150-375); Red Blood Count 4.49 M/mm3 (4.2-5.4); Red Cell Distribution Width 12.5 % (11.5-14.5); White Blood Count 5.3 K/mm3 (4.5-10.0)
[2024-10-21 13:11] LABS: Alanine Aminotransferase 25 U/L (6-35); Albumin Level 3.8 g/dL (3.5-5.1); Alkaline Phosphatase 73 U/L (38-126); Anion Gap 9 mmol/L (4-12); Aspartate Amino Transferase 22 U/L (14-36); Bilirubin,Total 1.4 mg/dL (0.2-1.3); Blood Urea Nitrogen 10 mg/dL (7-17); Calcium 8.8 mg/dL (8.4-10.2); Carbon Dioxide 29 mmol/L (22-30); Chloride 105 mmol/L (98-107); Estimated Glomerular Filt Rate > 60; Glucose 96 mg/dL (65-110); Magnesium 1.7 mg/dL (1.6-2.3); Potassium 3.3 mmol/L (3.4-5.0); Sodium 143 mmol/L (137-145)
[2024-10-21 13:38] LABS: Thyroid Stimulating Hormone < 0.015 uIU/mL (0.465-4.680)
[2024-10-21 13:51] LABS: Free T4 Free Thyroxine 1.28 ng/dL (0.78-2.19); Vitamin D 25 Hydroxy 27.2 ng/mL
== END 2024-10-21 12:13 | disposition home or self-care (01) ==
LOC: ANHLAB 12:20
PROVIDERS: PCP Family Medicine; Visit Provider Family Medicine
DX: R42 Dizziness and giddiness (principal); R00.0 Tachycardia, unspecified
CPT/HCPCS: 36415; 80053; 82306; 83735; 84439; 84443; 85025

== ENCOUNTER 2024-10-31 08:07 | Outpatient (CLI) | payer OTHER, SELFPAY ==
--- NOTE | ~2024-10-31 | US_ITS ---
Limited Abdominal Sonogram: Real-time sonographic imaging of the right upper quadrant was performed. Clinical History: Elevated total bilirubin Findings: The liver appears normal with no evidence of mass lesion or bile duct dilatation. Main por tra vein demonstrates normal direction of flow. The gallbladder is well distended, and appears normal with no evidence of gallstone or wall thickening. The common bile duct measures 2 mm. The visualize d pancreas, aorta, and IVC are unremarkable. Right kidney measures 9.8 cm in length, without hydronep hrosis or renal stone. Impression: No significant abnormality seen. Reviewed, dictated and finalized at location . Impression: No significant abnormality seen.
--- OUTSIDE RECORDS SUMMARY | 2024-10-31 08:22 | XMS_ITS | Patient Health Record ---
Author Organization [facility] Address [address] [place] [address] Care Team Providers Care Unemployment Claims Adjudicator Name Role Phone Aleksander Huang Unavailable [phone] REASON FOR REFERRAL No Information PLAN OF TREATMENT No Information Insurance Providers Payer Name Payer Address Payer Phone Subscriber Number Group Number Insured Name Patient Relationship to Insured Coverage Start Date Coverage End Date COVID19 [employer] Uninsured [employer] and [employer] Fund [address] [address] [place] [address] [id number] Corrina Mendoza Self - patient is the insured
--- OUTSIDE RECORDS SUMMARY | 2024-10-31 08:22 | XMS_ITS | Clinical Summary ---
Author Organization [facility] [place] [address] Address [address] [place] [address] Care Team Providers Care Train Electronic Technician Name Role Phone Reji Wyatt MD Primary Care Provider [phone] Allergies No known active allergies Medications vit 52-cuko-zasou-d cruz 27mg iron- 800 mcg-250 mg capsule Take 1 tablet by mouth daily Active cetirizine (ZyrTEC) 5 mg tablet Take 1 tablet (5 mg total) by mouth daily Active albuterol HFA (PROVENTIL HFA,VENTOLIN HFA,PROAIR HFA) 90 mcg/actuation inhaler INHALE 1 TO 2 PUFFS BY MOUTH EVERY 4 HOURS NEEDED Active ibuprofen (ADVIL,MOTRIN) 800 mg tablet Take 1 tablet (800 mg total) by mouth every 8 (eight) hours as needed for pain (pain) 30 tablet 4 Active acetaminophen (TYLENOL) 500 mg tablet Take 1 tablet (500 mg total) by mouth every 6 (six) hours as needed for pain 30 tablet 4 Active ferrous sulfate 325 mg (65 mg of elemental iron) tabletIndicatio ns:Iron Deficiency Anemia Take 1 tablet (325 mg total) by mouth daily with breakfast 30 tablet 2 4 07/26/20 25 Active Active Problems Problem Noted Date Diagnosed Date Status post repeat low transverse secti on 07/24/2024 Resolved Problems Problem Noted Date Diagnosed Date Resolved Date Delivery by elective section 07/24/2024 07/26/2024 Immunizations Immunization Administration Dates Next Due MMR 07/26/2024(Deferred: Contraindic ation) Varicella 07/26/2024(Deferred: Patient Ref used) Surgical History Surgery Date Site/Laterality Comments SECTION Social History Tobacco Use Types Packs/Day Years Used Date Smoking Tobacco: Never Assessed [place] Depression Scale Answer Date Recorded [place] Depression Scale Total 8 07/25/2024 The thought of harming myself has occurred to me . Never 07/25/2024 Personal Safety Answer Date Recorded Have you ever been in or are you currently in a harmful physical or emotional relationship or is someone making you feel afraid or unsafe? Denies 07/24/2024 Comments No Sex and Gender Information Value Date Recorded Sex Assigned at Not on file Legal Sex Female 12:07 PM CDT Gender Identity Not on file Sexual Orientation Not on file Obstetrics History Para Term AB IAB SAB Ectopic Multiple Livin g Live Births 2 2 2 0 2 2 Date Outcome GA Total Labor Labor/2nd/3rd Weight Sex Type Anes PTL Sonia A1 A5 Name Clin 2021 Term 39w 0d 3.147 kg (6 lb 15 oz) F CS-LT ranv N Livin g Complications:None Delivery Location:[facility] 2023 Term 40w 1d 0h 01m 0h 01m 3.58 kg (7 lb 14.3 oz) F C-Sec tion Spinal N Livin g 7 9 Mary r R Erick nn Alenin ick, Warren yn, DO Complications:None Delivery Location:[facility] Main C ampus ([facility] L AND D PROCEDURE) Last Filed Vital Signs Vital Sign Reading Time Taken Comments Blood Pressure 123/83 07/26/2024 5:31 AM TECHNICIAN TERMINAL AND REPEATER Pulse 97 07/26/2024 5:31 AM TECHNICIAN TERMINAL AND REPEATER Temperature 36.9 C (98.5 F) 07/26/2024 5:31 AM TECHNICIAN TERMINAL AND REPEATER Respiratory Rate 18 07/26/2024 5:31 AM TECHNICIAN TERMINAL AND REPEATER Oxygen Saturation 97% 07/26/2024 5:31 AM TECHNICIAN TERMINAL AND REPEATER Inhaled Oxygen Concentration - - Weight 87.5 kg (193 lb) 07/15/2024 3:43 PM TECHNICIAN TERMINAL AND REPEATER Height 162.6 cm (5' 4 ) 07/15/2024 3:43 PM TECHNICIAN TERMINAL AND REPEATER Body Mass Index 33.13 07/15/2024 3:43 PM TECHNICIAN TERMINAL AND REPEATER Plan of Treatment Health Maintenance Due Date Last Done Comments Cervical Cancer Screening 1992 Hepatitis C Screening 1992 DTaP/Tdap/Td Vaccine (1 - Tdap) 2003 Varicella Vaccines (1 of 2 - 13+ 2-dose series) 2005 Hepatitis B Screening 2010 Regular Well Visit/Exam 18-64 2010 Pneumococcal vaccine <65 (1 of 2 - PCV) 2011 Depression Screening 07/25/2025 07/25/2024 Influenza Vaccine Completed 08/11/2024 HPV Vaccines Aged Out No longer eligi ble based on patient's age to complete this topic [place] [facility] CHOICE [facility]US [facility] HMO/PPO Address: [address] [address] [place] [address] Advance Directives For more information, please contact: [phone] * Full Code (Latest Code Status on File) Date Activated Date Inactivated Comments 07/24/2024 1:11 PM 07/26/2024 5:09 PM * Full Code Date Activated Date Inactivated Comments 07/24/2024 7:45 AM 07/24/2024 1:11 PM Full CPR in case of cardiopulmonary arrest Care Teams Train Electronic Technician Relationship Specialty Start Date End Date Reji Wyatt MD [address] [place] [id number] PCP - General Family Medicine 02/11/19
--- OUTSIDE RECORDS SUMMARY | 2024-10-31 08:22 | XMS_ITS | Referral Summary ---
Author Organization [facility] [place] [address] Address [address] [place] [address] Care Team Providers Care Document Control Associate Name Role Phone Reji Wyatt MD Primary Care Provider [phone] Allergies No known active allergies Medications vit 42-odeo-thgkt-d cruz 27mg iron- 800 mcg-250 mg capsule [...] Contraindic ation) Varicella 07/26/2024(Deferred: Patient Ref used) Social History Tobacco Use Types Packs/Day Years Used Date Smoking Tobacco: Never Assessed [place]s Depression Scale Answer Date Recorded Ste[place]s Depression Scale Total 8 07/25/2024 The thought [...] on file Sexual Orientation Not on file Last Filed Vital Signs Vital Sign Reading Time Taken Comments Blood Pressure 123/83 07/26/2024 5:31 AM MEDICAL ANTHROPOLOGY DIRECTOR Pulse 97 07/26/2024 5:31 AM MEDICAL ANTHROPOLOGY DIRECTOR Temperature 36.9 C (98.5 F) 07/26/2024 5:31 AM MEDICAL ANTHROPOLOGY DIRECTOR Respiratory Rate 18 07/26/2024 5:31 AM MEDICAL ANTHROPOLOGY DIRECTOR Oxygen Saturation 97% 07/26/2024 5:31 AM MEDICAL ANTHROPOLOGY DIRECTOR Inhaled Oxygen Concentration - - Weight 87.5 kg (193 lb) 07/15/2024 3:43 PM MEDICAL ANTHROPOLOGY DIRECTOR Height 162.6 cm (5' 4 ) 07/15/2024 3:43 PM MEDICAL ANTHROPOLOGY DIRECTOR Body Mass Index 33.13 07/15/2024 3:43 PM MEDICAL ANTHROPOLOGY DIRECTOR Plan of Treatment Not on file Insurance [place]F [place] [facility] CHO[place] PLUS Advance Directives For more information, please contact: [phone] * Full Code (Latest Code Status on File) Date Activated Date Inactivated Comments 07/24/2024 1:11 PM 07/26/2024 5:09 PM * Full Code Date Activated Date Inactivated Comments 07/24/2024 7:45 AM 07/24/2024 1:11 PM Full CPR in case of cardiopulmonary arrest Care Teams Document Control Associate Relationship Specialty Start Date End Date Reji Wyatt MD [address] [place] [id number] PCP - General Family Medicine 02/11/19
--- OUTSIDE RECORDS SUMMARY | 2024-10-31 08:22 | XMS_ITS | Clinical Summary ---
Author Organization [facility] Address [address] [place] [address] Care Team Providers Care Compress Engineer Name Role Phone Pippa Marie MD Primary Care Provider + Allergies No known active allergies Medications buPROPion XL (WELLBUTRIN XL) 150 MG 24 hr tablet Take 1 tablet (150 mg total) by mouth daily. 01/23/2023 Active NEXTSTELLIS 3-14.2 MG Tab 08/14/2023 Activ e albuterol sulfate HFA 108 (90 Base) MCG/ACT inhalerIndicatio ns:Bronchitis Inhale 2 puffs into the lungs every 6 (six) hours as needed for Wheezing. 6.7 g 09/26/2023 Active Active Problems Estimated Date of Delivery Comme nts Yes 07/20/2024 No known active problems Social History Tobacco Use Types Packs/Day Years Used Date Smoking Tobacco: Never Smokeless Tobacco: Never Tobacco Cessation:Counseling Given: No PHQ-2 Answer Date Recorded Patient Health Questionnaire-2 Score 0 09/26/2023 Estimated Date of Delivery Comme nts Yes 07/20/2024 Sex and Gender Information Value Date Recorded Sex Assigned at Not on file Legal Sex Female 11:18 PM CDT Gender Identity Not on file Sexual Orientation Not on file Last Filed Vital Signs Vital Sign Reading Time Taken Comments Blood Pressure 131/82 01/21/2024 5:59 PM CDT Pulse 88 01/21/2024 5:59 PM CDT Temperature 36.8 C (98.2 F) 01/21/2024 5:59 PM CDT Respiratory Rate 18 01/21/2024 5:59 PM CDT Oxygen Saturation 98% 01/21/2024 5:59 PM CDT Inhaled Oxygen Concentration - - Weight 80.8 kg (178 lb 2.1 oz) 01/21/2024 2:38 P M CDT Height 152.4 cm (5') 01/21/2024 2:38 PM CDT Body Mass Index 34.79 01/21/2024 2:38 PM CDT Plan of Treatment Health Maintenance Due Date Last Done Comments Cervical Cancer Screening Pap Smear (Age 30 to 64) Every 3 Years 1992 Hepatitis B Vaccines (4 of 4 - 4-dose series) 09/13/1993 07/27/1993, 1993, 1992 Annual Physical 1995 Hepatitis C 2010 DTaP, Tdap and Td Vaccines (7 - Td or Tdap) 02/02/2017 02/02/2007, 02/09/1998, 02/09/1994, Additional history exists Cervical Cancer Screening Pap with HPV Testing (Age 30 to 64) Every 5 Years 2022 Cervical Cancer Screening with HPV 2022 COVID-19 Vaccine ( season) 2024 Influenza Adult (#1) 2024 PHQ-2 (Physician [place]) 08/20/2024 09/26/2023 RSV Immunization or 60+ Years (1 - 1-dose 75+ series) 2067 HPV Vaccines Aged Out No longer eligi ble based on patient's age to complete this topic Meningococcal B Vaccine Aged Out No l onger eligible based on patient's age to complete this topic Meningococcal Vaccine Aged Out No ramses mike eligible based on patient's age to complete this topic Pneumococcal Vaccine: Pediatrics (0 to 5 Years) and At-Risk Patients (6 to 64 Years) Aged Out No longer eligible based on patient's age to complete this topic RSV Immunizations Under 20 Months Aged Out No longer eligible based on patient's age to complete this topic Insurance [facility] Care Teams Compress Engineer Relationship Specialty Start Date End Date Pippa Marie MD [address] [place] [address] [phone] PCP - General FAMILY PRACTICE 12/25/19
--- OUTSIDE RECORDS SUMMARY | 2024-10-31 08:22 | XMS_ITS | Data Portability ---
Author Organization [facility] [employer] , [facility]Pierre Address [address] [place] [address] Assessment No assessment recorded. Plan of Treatment Reminders Order Date Submit Date Provider Last Modified By Organization Details Last Modified Time Details Appointments None recorded. Lab HPV E6+E7 mRNA, qualitative PCR, cervix 2024 025 [facility] Nate, [address] [place] [address], [address], 5 09:41:13 pap, LB 2024 025 PARKER [employer] [facility], [address] [place], [address], 5 17:01:51 Referral None recorded. Procedures None recorded. Surgeries None recorded. Imaging None recorded. Medication Orders Slynd 4 mg (28) tablet 2024 025 PARKER [facility], [address] [place] [address], [address], 5 12:50:13 dicloxacill in 500 mg capsule 2023 024 PARKER [id number], [address] [place], [place], [id number], 4 15:56:55 Patient TargetsNo targets recorded. Patient Instructions Encounter Date Encounter Id Patient Instructions Last Modified By Organization Details Last Modified Time 08/01/2024 [id number] Care at Home With Your Baby: Care Instructions [email or web address] Not available 08/01/2024 16:38:32 08/11/2024 [id number] depression after childbirth: care instructions Not available 08/14/2024 19:01:05 Care at Home With Your Baby: Care Instructions Not available 08/14/2024 19:01:05 control after counseling Not available 08/14/2024 19:01:05 09/01/2024 [id number] depression after childbirth: care instructions Not available 09/01/2024 12:50:11 Care at Home With Your Baby: Care Instructions Not available 09/01/2024 12:50:11 control after counseling larry Not available 09/01/2024 12:50:11 Reason for Referral None Reported. Results Created Date Observation Date Name Description Value Unit Range Abnormal Flag Note LastModifiedBy Organization Detail LastModifiedTime 07/01/20 24 07/05/2024 STREP TOCOC CUS, GROUP B CULTU RE streptococcu s, group B culture SEE NOTE STREP TOCOC CUS, GROUP B CULTU RE Micro Numbe r: [id number] Test Statu s: Final Speci men Sourc e: Recto vagin al Speci men Quali ty: Adequ ate Resul t: No group B Strep tococ cus isola yessica Note per CDC guide lines optim al recov dion is achie jagruti by swabb ing both the lower vagin a and rectu m (thro ugh the anal sphin cter) . Not Available [facility] [address] [place], [address], 07/05/2024 09:31:59 09/01/1909/03/2024 THINP REP TIS PAP clinical information: normal None given Not Available [facility] [facility] [address] [place], [address], 09/03/2024 17:01:51 09/01/1909/03/2024 THINP REP TIS PAP LMP: normal None given Not Available [facility] [facility] [address] [place], [address], 09/03/2024 17:01:51 09/01/19 25 09/03/2024 THINP REP TIS PAP prev. Pap: normal None given Not Available [address], [address], 09/03/2024 17:01:51 09/01/19 25 09/03/2024 THINP REP TIS PAP prev. BX: normal None given Not Available [address], [address], 09/03/2024 17:01:51 09/01/19 25 09/03/2024 THINP REP TIS PAP source: normal Cervi x Not Available [address], [address], 09/03/2024 17:01:51 09/01/19 25 09/03/2024 THINP REP TIS PAP statement of adequacy: normal Satis facto ry for evalu ation . Endoc ervic al/tr ansfo rmati on zone compo nent prese nt. Age and/o r menst rual statu s not provi ded Not Available [address], [address], 09/03/2024 17:01:51 09/01/19 25 09/03/2024 THINP REP TIS PAP interpretati on/result: normal Cytol ogy Resul ts: Negat radha for intra epith elial lesio n or jaki [place] . Not Available [address], [address], 09/03/2024 17:01:51 09/01/19 25 09/03/2024 THINP REP TIS PAP comment: normal This Pap test has been evalu ated with compu ter nithya yessica techn ology . Not Available [address], [address], 09/03/2024 17:01:51 09/01/19 25 09/03/2024 THINP REP TIS PAP cytotechnolo gist: normal YQ, CT( CP) CT scree partha locat ion: [facility] [address] [facility] [address] [address] [place] [address] Not Available [employer] [address] [address] [place], [address], 09/03/2024 17:01:51 09/01/19 25 09/03/2024 THINP REP TIS PAP comment EXPLA NATOR Y NOTE: The Pap is a scree partha test for cervi marlon cance r. It is not a diagn ostic test and is subje ct to false negat radha and false posit radha resul ts. It is most relia ble when a satis facto ry sampl e, regul ceci obtai maggy, is submi tted with relev ant clini marlon findi ngs and histo ry, and when the Pap resul t is evalu ated along with histo sonia and curre nt clini marlon infor matio n. Not Available [employer] [address] [address] [address], [place], [address], 09/03/2024 17:01:51 09/01/19 25 09/03/2024 HPV HIGH RISK HPV high risk Negati ve negati ve normal The HPV High Risk assay is inten ded for use as co-te sting with cytol ogy and not as a subst itute for regul ar cervi marlon cytol ogy scree partha. This assay is not inten ded for use as a scree partha devic e for women under age 30 with katya l cervi marlon cytol ogy. Not Available [address], [address], 09/04/2024 09:41:13 Result Notes None recorded. Problems Name Problem SNOMED Code Status Onset Date Resolution Date Notes Provider Name and Address Organization Details Recorded Time Pregnanc y 92210370 Completed 202309/03/2024 BROOKE MEYER [address] [facility], [place], [address], [facility] IV 01/15/202 5 13:45:53 Past pregnanc y history of section 828378103 Completed desires repeat with BS [facility] for del, prior CS for Breech presentat ion Norma BeltreGarrett hardy, [facility] [address] [place], [address], [facility] [employer] IV 4 11:07:01 Low lying placenta 443679345 Completed RESOLVED Norma BeltreGarrett hardy, [facility] [address] [place], [address], [facility] [employer] IV 4 16:40:51 Asthma 236142373 Active 2023 Sena álvarez, [place] Written IV 4 16:52:22 Problem Notes None recorded. Procedures Surgical History Date Name Laterality Status Provider Name and Address Organization Details Recorded Time 5 Date of Last Pap Smear completed TOMA ROCKWELL [address], [address], [facility] [employer] IV 09/06/2024 09:53:55 Suture/Staple removal completed TOMA ROCKWELL [address], [address], [facility] [employer] IV 08/01/2024 20:25:07 Colonoscopy completed Marisol Bloom [facility] [employer] IV 12/13/2023 09:40:33 C Section completed Maggie Brooke [facility] [employer] IV 08/01/2024 16:14:40 Imaging Results None recorded. Procedure Notes None recorded. Medical Equipment None Reported. Allergies No known drug allergies Medications Name Sig Start Date Stop Date Status Note LastModified by Organization Details LastModified Time dicloxacill in 500 mg capsule TAKE 1 CAPSULE BY MOUTH EVERY 6 HOURS FOR 7 DAYS active Not Available Not Available No t Available ibuprofen 800 mg tablet 08/11 completed Not Available Not Available Not Available cephalexin 500 mg capsule 04/10 completed Not Available Not Available Not Available clindamycin 2 % vaginal cream INSERT 1 APPLICATO RFUL VAGINALLY EVERY DAY AT BEDTIME FOR 7 DAYS 04/29 completed Not Available Not Available Not Available albuterol sulfate HFA 90 mcg/actuati on aerosol inhaler active Not Available Not Available Not Available fluticasone propionate 50 mcg/actuati on nasal spray,suspe nsion 04/29 completed Not Available Not Available Not Available Iron (ferrous sulfate) active Not Available Not Available Not Available + DHA active Not Available Not Available Not Available Slynd 4 mg (28) tablet Take 1 tablet every day by oral route. 2024 active Not Available Not Available Not Avai lable Vitals Date Recorded Body weight Body mass index (BMI) Body height Provider Name and Address Organization Details Last Updated DateTime 07/14/2024 21651.70990 g 33.1 kg/m2 162.56 cm Sena Encinas [facility] [employer] IV 07/14/2024 16:52:13 Date Recorded Body height Body mass index (BMI) Body weight Body temperature Systolic blood pressure Diastolic blood pressure Provider Name and Address Organization Details Last Updated DateTime 4 162.56 cm 33 kg/m2 86674.7 4 g 97.6 [degF] 122 mm[Hg] 82 mm[Hg] Ember Amin [place] Written IV 4 17:08:39 Date Recorded Body height Body mass index (BMI) Body weight Body temperature Systolic blood pressure Diastolic blood pressure Provider Name and Address Organization Details Last Updated DateTime 4 162.56 cm 29.9 kg/m2 99202.5 1 g 97.5 [degF] 122 mm[Hg] 82 mm[Hg] [facility] Written IV 4 16:21:12 Date Recorded Body height Body mass index (BMI) Body weight Body temperature Systolic blood pressure Diastolic blood pressure Provider Name and Address Organization Details Last Updated DateTime 4 162.56 cm 29.1 kg/m2 19687.9 8 g 97.8 [degF] 122 mm[Hg] 82 mm[Hg] [facility] IV 4 15:58:28 Date Recorded Body height Body temperature Body mass index (BMI) Body weight Systolic blood pressure Diastolic blood pressure Provider Name and Address Organization Details Last Updated DateTime 5 162.56 cm 97.6 [degF] 28.1 kg/m2 72010.7 1 g 114 mm[Hg] 78 mm[Hg] Maggie Brooke [place] Written IV 12:21:51 Social History Question Answer Notes LastModified by Organizat ion Details LastModified Time Tobacco Smoking Status Never Smoker Marisol Bloom [place], [place] Written IV 12/13/2023 09:40:33 What Is Your Level Of Alcohol Consumption? Occasional [email or web address] Information not available 12/13/2023 How Many Times Per Week Do You Consume Alcohol? Less Than 1 Time Per Week [email or web address] Information not available 12/27/2023 If You Are , What Was Your Level Of Alcohol Consumption Prior To ? None [email or web address] Information not available 01/26/2024 How Many Years Have You Consumed Alcohol? 10 [email or web address] Information not available 12/13/2023 Are You Blind Or Do You Have Difficulty Seeing? No [email or web address] Information not available 12/13/2023 Are You Currently Employed? Yes Information not available 12/13/2023 Are You Deaf Or Do You Have Serious Difficulty Hearing? No [email or web address] Information not available 12/13/2023 What Type Of Diet Are You Following? REGULAR [email or web address] Information not available 12/13/2023 What Is The Highest Grade Or Level Of School You Have Completed Or The Highest Degree You Have Received? [id number] Information not available 12/13/2023 How Many Children Do You Have? 1 [email or web address] Information not available 12/13/2023 Are There Any Occupational Health Risks Where You Work? No [email or web address] Information not available 12/13/2023 What Is Your Relationship Status? [email or web address] Information not available 12/13/2023 Are You Sexually Active? Yes Information not available 12/13/2023 What Types Of Sporting Activities Do You Participate In? I Work At A Daycare [email or web address] Information not available 12/13/2023 Do You Use Any Illicit Or Recreational Drugs? No [email or web address] Information not available 12/13/2023 Do You Or Have You Ever Used Any Other Forms Of Tobacco Or Nicotine? No [email or web address] Information not available 05/14/2024 Sex: Unknown Functional Status Question Answer Note LastModified by Organization D etails LastModified Time What is your exercise level? Moderate Information not available 12/13/2023 Mental Status None recorded. Family History Relationship Description Onset Age of this Age Resolved Age Notes LastModified by Organization Details LastModified Time Father No current problems or disability [email or web address] Not available 12/12 09:41:58 Mother No current problems or disability Not available 12/12 09:41:58 Medical History Condition Response Other Cancer N High Blood Pressure N Colon Cancer N Cytomegalovirus N Hyperthyroidism N MRSA N Breast Cancer N Herpes (HSV) N Blood Transfusion N Lung Cancer N Depression Y Hypothyroidism N Incontinence N Panic Attacks N Neurological Disorder N Deep Vein Thrombosis N Anxiety Disorder N Autoimmune disease N Arthritis N Tuberculosis/Positive PPD N Shingles N Polycystic Ovarian Syndrome N Infertility N Cervical Cancer N Hematuria N Chlamydia N Stroke N Varicosities N Seasonal allergies Y Crohn's Disease N Alzheimer's/Dementia N COPD/Emphysema N Endometriosis N HPV/Genital Warts N IBS (Irritable Bowel Syndrome) Y History of Abnormal Pap N High Cholesterol N Liver Disease N Kidney Infection N Fibromyalgia N Ulcer N Kidney Disease N HIV N Gallbladder disease N Sickle Cell Disease/Trait N Von Willebrand disease N ADD/ADHD N Eating Disorder N Anemia N Diabetes Mellitus (non-insulin dependent ) N Multiple Sclerosis N Ovarian Problems N Gonorrhea N Frequent Urinary Tract infections N Osteopenia N Headaches/migraines N GERD (reflux) N Ovarian Cancer N Diabetes (insulin dependent) N Seizures/Epilepsy N Breast Problems N Fibroids Y Asthma Y Heart Attack N Lupus N Endometrial Cancer N Rubella N Blood Clotting Disorder N Diabetes Mellitus (during ) N Ulcerative Colitis N Hepatitis N Heart Disease N Pulmonary Embolism N RPR N Chicken Pox N Osteoporosis N Gynecological History Statement/Question Response Flow Light Date of last HPV 09/01/2024 Date of LMP 10/17/2023 HPV Vaccine Y Duration of Flow (days) 4 Most Recent Mammogram Current Control Method BCPs Age at Menarche 15 Date of Last Colonoscopy Most Recent Bone Density Frequency of Cycle (Q days) 26 Date of Last Pap Smear 09/01/2024 Obstetrics History GPAL:G 2 P 2 0 0 2 Type Value Multiple Births 1 Full Term 2 Induced 0 Spontaneous 0 Premature 0 Living 2 Ectopics 0 Total 2 Past Encounters Encounter ID Performer Location Encounter Start Date Encounter Closed Date Diagnosis/Indication Diagnosis SNOMED-CT Code Diagnosis ICD10 Code Diagnosis Note [id number] Norma Beltre-Brandan is, [facility] [address] [address] 12/13/2023 09:29:48 12/14/2023 12:33:25 test positive 484179650 Z32.01 LMP 10/17/23US 12/12 [id number] 07/23Prior CS for Breech, desires BS -discussed [facility] for delFU in 2 weeks for IOB with [place] [id number] Norma Beltre-Brandan camp, CNM [facility] [address] [place] [address] 12/27/2023 15:23:40 12/27/2023 17:29:23 Normal 33521824 Z34.91 Additional diagnosis detail: Normal in first trimester screening 2437 01262 Z36.89 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, molecular genetics 1818457 Z14.8 [id number] Dulce Campo MD [facility] [address] [place] [address] 01/26/2024 12:23:32 01/26/2024 17:31:06 Multigravida 832975422 Z34.82 Additional diagnosis detail: Multigravi da in second trimester Gestation period, 14 weeks 77087007 Z3A.14 Additional diagnosis detail: 14 weeks gestation of Past pregn melody history of section 362698609 Z98.891 desires to have repeat c section with tubal sterilizat ionAdditio nal diagnosis detail: History of section, low transverse Urinary tr act infectious disease 21849595 N39.0 status post recent treatment for UTI with Keflex 3 days. Will follow up on records and repeat culture today.Disc ussed also musculoske letal back pain in pregnancyA dditional diagnosis detail: Urinary tract infection in female [id number] CONNIE ESTRADA DO [facility] [address] [place] [address] 02/22/2024 10:35:10 02/22/2024 11:23:17 Multigravida 752670765 Z34.82 Additional diagnosis detail: Multigravi da in second trimester Past pregn melody history of section 347809909 Z98.891 desires to have repeat c section with tubal sterilizat ionAdditio nal diagnosis detail: History of section, low transverse Gestation period, 18 weeks 30403961 Z3A.18 Additional diagnosis detail: 18 weeks gestation of [id number] MARISOL LINCOLN NP [address] [address] 03/20/2024 11:52:43 03/20/2024 15:15:34 Gestation period, 22 weeks 95003431 Z3A.22 Pt is here for a MELISA appointmen t. She is taking vitamins. She has no complaints or questions. Reports feeling movement. Denies vaginal bleeding, abdominal cramps, N/V, contractio ns, or LOF. Denies headache, vision changes, swelling of hands or face, and epigastric pain. Discussed PTL and precaution s given. There are no identifiab le risk factors for pre-term labor. Reminded pt that I do not delivery babies.Rec ommended to see a delivery drRTC - 3wks & 6wks for anatomy, 3T & 1hr GTT. screening 2437 91214 Z36.86 screening for malformation 421782613 Z36.3 Normal 2025460 2 Z34.92 [id number] Breann Mojica MD [address] [address] 04/10/2024 14:47:47 04/10/2024 15:46:04 Normal 58294428 Z34.82 Gestation period, 25 weeks 70814707 Z3A.25 Vaginal discharge 518977 006 N89.8 [id number] CELINA SNOWDEN NP [address] [address] 04/15/2024 11:12:36 04/16/2024 11:34:11 Gestation period, 25 weeks 05977771 Z3A.25 Normal 6603608 2 Z34.92 Pt is here for a MELISA blanco. She is taking vitamins. She has no complaints or questions. Reports feeling movement. Denies vaginal bleeding, abdominal cramps, N/V, contractio ns, or LOF. Denies headache, vision changes, swelling of hands or face, and epigastric pain. Discussed PTL and precaution s given. There are no identifiab le risk factors for pre-term labor. Patient reports feeling more tired encouraged to take occasional naps and/or breaks. patient also advised of unisom or benadryl for sleep. screening for malformation 256854838 Z36.3 Bacterial vaginosis 4197 34998 N76.0 [id number] Norma camp, [facility] [address] [place] [address] 04/29/2024 15:51:15 04/29/2024 17:13:09 Gestation period, 27 weeks 63795786 Z3A.27 [id number] Norma camp, [facility] [address] [place] [address] 05/14/2024 15:53:07 05/14/2024 18:02:00 Normal 51735077 Z34.83 Additional diagnosis detail: Normal in first trimester screening 2437 16741 Z36.89 [id number] CELINA SNOWDEN SYSTEMS TECHNICIAN [facility] [address] [place] [address] 05/30/2024 15:54:45 06/02/2024 17:48:55 High risk 65843435 O09.90 Pt is here for a MELISA appointmen t. She is taking vitamins. She has no complaints or questions. Reports feeling movement. Denies vaginal bleeding, abdominal cramps, N/V, contractio ns, or LOF. Denies headache, vision changes, swelling of hands or face, and epigastric pain. Discussed PTL and precaution s given. There are no identifiab le risk factors for pre-term labor.Give n work restrictio n letter due to fall and c/o intermitte nt cramping. patient encourage to increase fluids. [id number] Norma capm, [facility] [address] [place] [address] 06/11/2024 16:04:47 06/13/2024 17:40:58 Normal 45507372 Z34.83 Additional diagnosis detail: Normal in first trimester Gestation period, 34 weeks 41812206 Z3A.34 [id number] Norma camp, CNNadine [facility] [address] [place] [address] 07/01/2024 16:30:52 07/01/2024 17:31:49 screening 644581817 Z36.85 High risk 4720 0007 O09.767 [id number] CONNIE ESTRADA DO [facility] h [address] [place] [address] 07/07/2024 16:19:46 07/09/2024 12:13:37 Gestation period, 37 weeks 91308789 Z3A.37 Past pregn melody history of section 758338385 Z98.891 Patient has a history of section (x1). was due to breech presentati on She has no contraindi cations for TOLAC. Overall success of TOLAC for a patient is 60-80%. Based on patient's history; previous due to breech increases her success and BMI decreases her success.Ri sks and benefits of TOLAC vs RLTCS were discussed. Discussed that has the lowest morbidity and mortality then RLTCS then RLTCS in the setting of TOLAC. Informed patient that the biggest risk of TOLAC is uterine rupture and if she were to go into labor on her risk would be < 1% and if she required augmentati on with Pitocin risk would be <1.5% We are unable to use any cervical ripening agents as we are unable to control her contractio ns increasing her risk of uterine rupture. After discussion patient would like to proceed with TOLAC. If not delivered by 07/23/24, will proceed with RLTCS. care status 24 0472042 Z34.93 [id number] CONNIE ESTRADA DO [facility] [address] [place] [address] 07/14/2024 16:38:06 07/14/2024 17:21:08 Multigravida 241158382 Z34.83 Additional diagnosis detail: Multigravi da in second trimester Gestation period, 38 weeks 48108538 Z3A.38 Past pregn melody history of section 656501223 Z98.891 Patient has a history of section (x1). was due to breech presentati on She has no contraindi cations for TOLAC. Overall success of TOLAC for a patient is 60-80%. Based on patient's history; previous due to breech increases her success and BMI decreases her success.Ri sks and benefits of TOLAC vs RLTCS were discussed. Discussed that has the lowest morbidity and mortality then RLTCS then RLTCS in the setting of TOLAC. Informed patient that the biggest risk of TOLAC is uterine rupture and if she were to go into labor on her risk would be < 1% and if she required augmentati on with Pitocin risk would be <1.5% We are unable to use any cervical ripening agents as we are unable to control her contractio ns increasing her risk of uterine rupture. After discussion patient would like to proceed with TOLAC. If not delivered by 07/23/24, will proceed with RLTCS. [id number] BROOKE [facility] [address] [place] [address] 07/21/2024 16:43:52 07/21/2024 17:25:45 care status 242679484 Z34.93 Pt is here for a MELISA appointmen t. She is taking vitamins. She has no complaints or questions. Denies vaginal bleeding, abdominal cramps, N/V, contractio ns, and LOF. Denies headache, vision changes, swelling of hands or face, and epigastric pain. Reports feeling movement. Discussed Movement Counts. Discussed Labor Precaution s. Follow up in L&D if experienci ng decreased movement, leaking fluid, or regular uterine contractio ns increasing in frequency and/or intensity. Reminded pt that I do not delivery babies. Recommende d pt see a Delivery provider next visit so she has the chance to meet everyone. 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 Encouraged to keep incision clean and dry. RTC in 1 week. Inflammato ry disorder of breast 851681819 N61.0 right breast redness, warmth and pain for the last couple days Depression screening 171 138265 Z13.32 EPDS Score 7- mild depression scoring, will reassess at next visit. Pt denies any thoughts of harming herself or baby. [id number] TOMA ROCKWELLBRIGETTECARLOS [facility] [address] [place] [address] 08/11/2024 15:47:51 08/15/2024 13:03:29 state 85311652 Z39.2 Patient is an establishe d patient, she is here for her 2 week visit. Her course was uncomplica yessica. Denies pelvic pain or any signs of infection. Denies any acute concerns. Baby and Mom are doing good. Home life is going well. -- Delivery Date:2023-- delivery-- Baby Blues & Depression discussed. Pt denies any feelings of depression , frequent crying, or feelings of harming self or others. Educated on the warning signs of depression and when to seek medical attention. -- PNV while at reproducti ve age for benefits in early . -- Continue light activity & can start light exercise such as walking.-- Discussed no vaginal penetratio n and no tampons until 6 weeks PP.-- Discussed benefits of waiting minimum 12-18 months between pregnancie s to reduce negative outcomes.- - Lochia: Still bleeding, starting to spot. No odor.-- Uterus: Involuted- - Bowl and Bladder: Reports no issues. Discussed fiber intake, staying hydrated, and stool softeners PRN.-- Perineum: Denies redness, edema, or discharge. Discussed Perineal care witch mark and dermoplast PRN.-- Hemorrhoid s: Denies. Discussed Witch Mark pads, hemorrhoid balm, and stool softener PRN.-- Breasts: Pt is breast feeding. Denies breast pain, warmth, or firmness. Encouraged continuing breastfeed ing. Counseled regarding benefits for mother and baby.-- Briefly reviewed contracept radha options & encouraged to consider preferred option for next visit.-- Safe Sleeping Instructio ns per AAP: STRONGLY ADVISED against cosleeping with infants. Infants should always sleep: on their backs, on firm surfaces, on clean surfaces, in the absence of (secondhan d) smoke, under light (comfortab le) blanketing , and their heads should never be covered. Avoid objects in the crib that could present hazard to infant.-- Pre-Eclamp maddison S/S reviewed in detailed. Cautioned pt to be seen right away in office or at hospital if VERGARA, visual changes (floaters, narrowing, and/or shortening of vision), RUQ/epigas tric pain). If checking BP's at home - target range reviwed - 150/90 go to hospital for evaluation .--Contrac eption: Pt desires POP for contracept ion, plan to start at next visit.- RTO in 4 weeks for full physical exam Depression screening 171 [id number] Z13.31 See Screening Section for EPDS Questionna alyssia ResultEPDS 3- Pt educated on normal scoring, and discussed depression precaution s and when to notify HCP/go to ER. [id number] BROOKE MEYER [facility] [address] [place] [address] 09/01/2024 12:12:28 09/04/2024 15:08:57 state [id number] Z39.2 Patient is an establishe d patient, she is here for her 6 week visit. Her course was uncomplica yessica. Denies pelvic pain. Denies any acute concerns. Baby and Mom are doing good. Home life is going well. -- Delivery Date: 07/24/24 -- Depression discussed, may occur up to 1 year after delivery. Pt denies any feelings of depression , frequent crying, or feelings of harming self or others. Educated on the warning signs of depression and when to seek medical attention. -- PNV while at reproducti ve age for benefits in early . -- Restart exercise as tolerated. -- May resume sexual intercours e as tolerated. -- Discussed benefits of waiting minimum 12-18 months between pregnancie s to reduce negative outcomes.- - Lochia: Bled for 2 weeks. Scant spotting. No odor.-- Uterus: Involuted- - Bowl and Bladder: Reports no issues. Discussed fiber intake, staying hydrated, and stool softeners PRN.-- Perineum: Denies redness, edema, or discharge. Discussed Perineal care witch mark and dermoplast PRN.-- Hemorrhoid s: Denies. Discussed Witch Mark pads, hemorrhoid balm, and stool softener PRN.-- Breasts: Pt is breast feeding. Denies breast pain, warmth, or firmness. Encouraged continuing breastfeed ing. Counseled regarding benefits for mother and baby.-- Safe Sleeping Instructio ns per AAP: STRONGLY ADVISED against cosleeping with infants. Infants should always sleep: on their backs, on firm surfaces, on clean surfaces, in the absence of (secondhan d) smoke, under light (comfortab le) blanketing , and their heads should never be covered. Avoid objects in the crib that could present hazard to infant.-- Contracept ion options discussed and would like: Pt desires POP for contracept ion, rx sent-- PAP collected today Depression screening 171 [id number] Z13.31 See Screening Section for EPDS Questionna alyssia ResultEPDS 3-Pt educated on normal scoring, and discussed depression precaution s and when to notify HCP/go to ER. Initial pr escription of oral contraception [id number] Z30.011 The progestin- only pill contains a hormone like one your body makes. It works by making the mucusin your cervix too thick for sperm to pass through. If sperm cannot reach the egg, you cannot getpregnan t. The progestin- only pill that contains the hormone Drospireno ne also stops your ovaries fromreleas ing eggs. No method of control is 100% effective. The progestin- only pill is 93% effective with typical use. You may notice changes in your periods. You may have spotting or no period at all. This is normal. You may have nausea, spotting, weight change, and/or breast/jaycee st pain. These problems typicallya way after 3-6 months. -- If you take your first pill more than 5 days after the start of your period, you should use condoms orspermici de as back-up for the first2 weeks.--us e condoms for 7 days if pill is missed Screening for malignant neoplasm of cervix [id number] Z12.4 ASCCP guidelines reviewed with patient. Pap Hx: unsure of date of last pap. Pap collected today. Pt states understand ing and is amenable to POC. Health Concerns Section Related Observation LastModified by Organization Detai ls LastModified Time None Recorded Concern Status LastModified by Organization Details LastModified Time None Recorded Advance Directives Directive None Recorded Payers Encounter Date Sequence Insurance Name Policy Number Policy Guthrie Covered Member ID Guthrie Member ID Guarantor Name 07/14/2024 1 [facility] [id number] [facility] [id number] [facility] 07/21/2024 1 [facility] [id number] [facility] [id number] [facility] 08/01/2024 1 [facility] [id number] [facility] [id number] [facility] 08/11/2024 1 [facility] [id number] [facility] [id number] [facility] 09/01/2024 1 [facility] [id number] [facility] [id number] [facility] Notes Date Note Type Note Provider Name and Address Organization Details Recorded Time 07/14/2024 text/html Corrina 33 y/o here for routine OB visit, she is 38/5 weeks, denies any vaginal spotting, bleeding, fluid leakage c/o cramping, movement noted, taking vitamins. CONNIE ESTRADA, DO [facility], [place], [address], [facility] 07/14/2024 17:19:21 07/21/2024 text/html Corrina is here today for a routine OB visit. She is currently at {{6 7 8 9 10 11 1 2 13 14 15 16 17 18 19 20 21 22 23 24 25 26 27 28 2 9 30 31 32 33 34 35 36 37 38 39 40 41 39.5#}} weeks gestation. vitamins: {{yes* no}} She {{has* has not}} felt movement.She denies any complaints of the presence of vaginal bleed, leaking fluid, abdominal cramps, nausea, vomiting, or visual disturbances. Pt c/o having cold and flu symptoms. She has a bad cough and headaches. LEA LAMARFRANCES, BROOKE- [address] [place], [address], [facility] [employer] 07/21/2024 17:24:03 08/01/2024 text/html Pt presents for post op visit. Pt is s/p CS on 07/24/2024. Pt is pumping. Pt is healing well and denies any pain or abnormal bleeding. Denies any signs of infection. Denies any headaches, blurred vision, RUQ pain or increase in swelling. TOMA MOIZBROOKE [address] [place], [address], [facility] [employer] 08/01/2024 20:32:28 08/11/2024 text/html Pt presents for post op visit. Pt is s/p CS on 07/24/2024. Pt is pumping. Pt is healing well and denies any pain or abnormal bleeding. Denies any signs of infection. Denies any headaches, blurred vision, RUQ pain or increase in swelling. Pt is breast and bottle feeding TOMA MOIZBROOKE [address] [place], [address], [facility] [employer] 08/14/2024 19:01:10 09/01/2024 text/html Corrina is her today for her 6 week visit. Pt is pumping and bottle feeding. Pt is healing well and denies any pain or abnormal bleeding. Denies any signs of infection. Denies any headaches, blurred vision, RUQ pain or increase in swelling. TOMA MOIZBROOKE CR [address] [place], [address], [facility] Written IV 09/03/2024 14:00:10 OBGyn Episode Ob Episode Information Episode Created Date Number of Fetuses Patient Bloodtype Patient rh Status Prepregnancy Weight lbs Domestic Partner Domestic Partner Phone Father Name Supervisor Fur Floor Worker Status 12/27/19 24 1 A Positive CLOSED Fetus Data First Name Last Name Admitted to NICU Weight (g) Sex Living Outcome Pediatric Complications Fetus ID Race Codes Race Delivery Type Mary r false 3572.03 7 F true Full Term [id number] Repeat Problems Problem Notes Problem Name Start Date End Date Resolution Snomed Code Not e Low lying placenta [id number] R ESOLVED Past history of section [id number] desires repeat with BS [facility] for del, prior CS for Breech presentation Matt Calculation Initial Matt Date Initial Exam Date Initial Exam Provider Initial Ultrasound Date Last Menstrual Period Date Ultra Sound Weeks Gestation 07/23/2024 12/27/2023 12/13/2023 10/17/2023 8 Eighteen To Twenty Week Matt Update Ultra Sound Date Fundal Height At Umbil Quickening Date Ultra Sound Latest Weeks Gestation Final Matt Confirmed By Final Matt Confirmed Date Final Matt Date Ultra Sound Latest Days Gestation 0 [email or web address] 12/27/2023 024 0 Pre- Flowsheet Flowsheet Date 12/27/2023 Edouard Score Blood Edema Fundus Height Fundus Units Glucose Ketones Leukocytes Nitrite Labor Signs Protein Cervic Dilation Cervic Effacement Cervic Station Type Weight in lbs Pre/Post Dialysis Refused With clothes 173.350367592801 BP Diastolic BP Location Tested BP Systolic BP Type 70 120 sitting Fetus Heart Rate Present A 176 Fetus Movement Comments Prior CS for Breech, desires BS [facility] weeks for IOB with [place] Flowsheet Date 01/26/2024 Edouard Score Blood Edema Fundus Height Fundus Units Glucose Ketones Leukocytes Nitrite Labor Signs Protein Cervic Dilation Cervic Effacement Cervic Station none neg Type Weight in lbs Pre/Post Dialysis Refused With clothes 177.964260036736 BP Diastolic BP Location Tested BP Systolic BP Type 70 120 sitting Fetus Heart Rate Present A 160 Present Fetus Movement Comments went to ER due to low back p ain, was told may have UTI and given keflex for 3 d. Pt with hx of UTI's with last . No hx of back problems. Feeling somewhat less. will ck urine culture Flowsheet Date 02/22/2024 Edouard Score Blood Edema Fundus Height Fundus Units Glucose Ketones Leukocytes Nitrite Labor Signs Protein Cervic Dilation Cervic Effacement Cervic Station Type Weight in lbs Pre/Post Dialysis Refused With clothes 179.602308280753 BP Diastolic BP Location Tested BP Systolic BP Type 62 108 sitting Fetus Heart Rate Present A 152 Fetus Movement A Yes Comments no ob complaints. RTO in 2-3 weeks for anatomy scan Flowsheet Date 03/20/2024 Edouard Score Blood Edema Fundus Height Fundus Units Glucose Ketones Leukocytes Nitrite Labor Signs Protein Cervic Dilation Cervic Effacement Cervic Station trace none Type Weight in lbs Pre/Post Dialysis Refused With clothes 187.202551527875 BP Diastolic BP Location Tested BP Systolic BP Type 68 R arm 110 sitting Fetus Heart Rate Present A 157 Present Fetus Movement A Yes Comments Anatomy incomplete, Heart vi ews needed. Low lying placenta, 1cm from internal os, anterior placenta, EFW 49%, AFV NL. Expresses having Calf pain. Negative Rodriguez sign, no redness, warmth or tenderness on assessment. Discussed what to watch for. No OB complaints. RTC 3wks & 6wks for anatomy, 3T labs & 1hr GTT. Flowsheet Date 04/10/2024 Edouard Score Blood Edema Fundus Height Fundus Units Glucose Ketones Leukocytes Nitrite Labor Signs Protein Cervic Dilation Cervic Effacement Cervic Station none none Type Weight in lbs Pre/Post Dialysis Refused 190.403250935286 BP Diastolic BP Location Tested BP Systolic BP Type 72 R arm 118 sitting Fetus Heart Rate Present A 134 Fetus Movement A Yes Comments c/o constant wettness on her underwear for several days. She reports good movement. Patient is not scheduled for follow up anatomical survey today due to her wanting her to be present. I explained that it is important to follow up anatomy sooner than later and I would encourage it to be done sooner. Flowsheet Date 04/15/2024 Edouard Score Blood Edema Fundus Height Fundus Units Glucose Ketones Leukocytes Nitrite Labor Signs Protein Cervic Dilation Cervic Effacement Cervic Station none none Type Weight in lbs Pre/Post Dialysis Refused With clothes 189.178382183803 BP Diastolic BP Location Tested BP Systolic BP Type 70 120 sitting Fetus Heart Rate Present A 150 Present Fetus Movement A Yes Comments Anatomy incomplete. Anterior placenta no previa, repeat at next visist for heart views. Clindamycin cream sent for BV. RTC in 2-3 wks Flowsheet Date 04/29/2024 Edouard Score Blood Edema Fundus Height Fundus Units Glucose Ketones Leukocytes Nitrite Labor Signs Protein Cervic Dilation Cervic Effacement Cervic Station Type Weight in lbs Pre/Post Dialysis Refused With clothes 191.76262958935 BP Diastolic BP Location Tested BP Systolic BP Type 70 110 sitting Fetus Heart Rate Present A 135 Fetus Movement A Yes Comments will do 3T labs next visit Flowsheet Date 05/14/2024 Edouard Score Blood Edema Fundus Height Fundus Units Glucose Ketones Leukocytes Nitrite Labor Signs Protein Cervic Dilation Cervic Effacement Cervic Station none neg Type Weight in lbs Pre/Post Dialysis Refused With clothes 194.011805289436 BP Diastolic BP Location Tested BP Systolic BP Type 70 115 sitting Fetus Heart Rate Present Fetus Movement A Yes Comments 3rd tri labs today, fell on Sunday. Discussed importance of going to hopsital if has a fall so we can monitor baby. No VB. LOF and fetus active Flowsheet Date 05/30/2024 Edouard Score Blood Edema Fundus Height Fundus Units Glucose Ketones Leukocytes Nitrite Labor Signs Protein Cervic Dilation Cervic Effacement Cervic Station trace 33 cm Cramping Type Weight in lbs Pre/Post Dialysis Refused With clothes 193.750389415541 BP Diastolic BP Location Tested BP Systolic BP Type 60 118 sitting Fetus Heart Rate Present A 133 Present Fetus Movement A Yes Comments c/o Bruising from recent fal l and period like cramps. encouraged water intake and rest. PTL precautions reviewed RTC in 2 wk Flowsheet Date 06/11/2024 Edouard Score Blood Edema Fundus Height Fundus Units Glucose Ketones Leukocytes Nitrite Labor Signs Protein Cervic Dilation Cervic Effacement Cervic Station 33 cm none neg Type Weight in lbs Pre/Post Dialysis Refused With clothes 194.032289663819 BP Diastolic BP Location Tested BP Systolic BP Type 70 120 sitting Fetus Heart Rate Present A 130 Fetus Movement A Yes Comments Desires TOLAC, will make apt with Flowsheet Date 07/01/2024 Edouard Score Blood Edema Fundus Height Fundus Units Glucose Ketones Leukocytes Nitrite Labor Signs Protein Cervic Dilation Cervic Effacement Cervic Station 36 cm 0cm 0% -4 Type Weight in lbs Pre/Post Dialysis Refused With clothes 197.806663345399 BP Diastolic BP Location Tested BP Systolic BP Type 70 125 sitting Fetus Heart Rate Present A 135 Fetus Movement A Yes Comments GBS pending Flowsheet Date 07/07/2024 Edouard Score Blood Edema Fundus Height Fundus Units Glucose Ketones Leukocytes Nitrite Labor Signs Protein Cervic Dilation Cervic Effacement Cervic Station none trace Type Weight in lbs Pre/Post Dialysis Refused Weight 193.945444841496 BP Diastolic BP Location Tested BP Systolic BP Type 68 110 Fetus Heart Rate Present A 145 Fetus Movement A Yes Comments pt desires TOLAC, please see A&P for full discussion. RTO in 1 week. Flowsheet Date 07/14/2024 Edouard Score Blood Edema Fundus Height Fundus Units Glucose Ketones Leukocytes Nitrite Labor Signs Protein Cervic Dilation Cervic Effacement Cervic Station none neg 1cm 50% -3 Type Weight in lbs Pre/Post Dialysis Refused With clothes 193.89627890037 BP Diastolic BP Location Tested BP Systolic BP Type R arm sitting Fetus Heart Rate Present Fetus Movement Comments no ob complaintsstill unsure if she wants tubal or not at , does have private insurancelabor/srom precautions given Flowsheet Date 07/21/2024 Edouard Score Blood Edema Fundus Height Fundus Units Glucose Ketones Leukocytes Nitrite Labor Signs Protein Cervic Dilation Cervic Effacement Cervic Station none none neg Type Weight in lbs Pre/Post Dialysis Refused With clothes 192.760892629660 BP Diastolic BP Location Tested BP Systolic BP Type 82 122 sitting Fetus Heart Rate Present A 141 Present Fetus Movement A Yes Comments No OB complaints. Pt has C-s ection scheduled on 07/24. Pt reports she does not want a tubal. Discussed FKC's. No additional questions. Flowsheet Date 08/01/2024 Edouard Score Blood Edema Fundus Height Fundus Units Glucose Ketones Leukocytes Nitrite Labor Signs Protein Cervic Dilation Cervic Effacement Cervic Station Type Weight in lbs Pre/Post Dialysis Refused With clothes 174.917229172876 BP Diastolic BP Location Tested BP Systolic BP Type 82 122 sitting Fetus Heart Rate Present Fetus Movement Comments Flowsheet Date 08/11/2024 Edouard Score Blood Edema Fundus Height Fundus Units Glucose Ketones Leukocytes Nitrite Labor Signs Protein Cervic Dilation Cervic Effacement Cervic Station Type Weight in lbs Pre/Post Dialysis Refused With clothes 169.804763057918 BP Diastolic BP Location Tested BP Systolic BP Type 82 122 sitting Fetus Heart Rate Present Fetus Movement Comments Flowsheet Date 09/01/2024 Edouard Score Blood Edema Fundus Height Fundus Units Glucose Ketones Leukocytes Nitrite Labor Signs Protein Cervic Dilation Cervic Effacement Cervic Station Type Weight in lbs Pre/Post Dialysis Refused With clothes 163.863875829057 BP Diastolic BP Location Tested BP Systolic BP Type 78 114 sitting Fetus Heart Rate Present Fetus Movement Comments Menstrual History Last Menstrual Date Menses Monthly On Bcp Conception Prior Menses Frequency Hcg Plus Date Menarche Onset Age 0210/17/2023 Delivery Information Delivery Date Delivery Type Labor Anesthesia Weeks Gestation Incision Type Labor Labor Length Hrs Delivered By Post Complications Tubal Sterilization Discharge Date Comments 4 None Regional-Sp inal 40.1 Low Transvers e false Connie Estrada DO Discharge Information Feeding Method Contraceptive Method Maternal HG B and HCT Levels Ob Episode Information Episode Created Date Number of Fetuses Patient Bloodtype Patient rh Status Prepregnancy Weight lbs Domestic Partner Domestic Partner Phone Father Name Supervisor Fur Floor Worker Status 12/13/19 24 1 CLOSED Fetus Data First Name Last Name Admitted to NICU Weight (g) Sex Living Outcome Pediatric Complications Fetus ID Race Codes Race Delivery Type F Full Term Primary Matt Calculation Initial Matt Date Initial Exam Date Initial Exam Provider Initial Ultrasound Date Last Menstrual Period Date Ultra Sound Weeks Gestation 0 Eighteen To Twenty Week Matt Update Ultra Sound Date Fundal Height At Umbil Quickening Date Ultra Sound Latest Weeks Gestation Final Matt Confirmed By Final Matt Confirmed Date Final Matt Date Ultra Sound Latest Days Gestation 0 0 Menstrual History Last Menstrual Date Menses Monthly On Bcp Conception Prior Menses Frequency Hcg Plus Date Menarche Onset Age Delivery Information Delivery Date Delivery Type Labor Anesthesia Weeks Gestation Incision Type Labor Labor Length Hrs Delivered By Post Complications Tubal Sterilization Discharge Date Comments 2 Discharge Information Feeding Method Contraceptive Method Maternal HG B and HCT Levels
== END 2024-10-31 08:08 | disposition home or self-care (01) ==
PROVIDERS: PCP Family Medicine; Visit Provider Family Medicine
DX: R17 Unspecified jaundice (principal)
CPT/HCPCS: 76705